=== PATIENT | male | born 1935 | race Caucasian/White ===

== ENCOUNTER 2018-12-30 09:10 | Observation (INO) | payer MEDICARE, BC ==
--- NOTE | 2018-12-27 10:20 | Diagnostic Imaging Report ---
EXAMINATION: CHEST 2 VIEWS INDICATION: Pre-operative COMPARISON: None FINDINGS: TUBES and LINES: None. LUNGS: The lung volumes are normal. No focal consolidation or pulmonary edema. PLEURA: No pleural effusion or pneumothorax. HEART AND MEDIASTINUM: The cardiomediastinal silhouette is normal in size and contour. Atherosclerotic calcifications of the thoracic aorta. BONES AND SOFT TISSUES: No acute fracture or dislocation. Degenerative changes of the visualized spine. UPPER ABDOMEN: No free air under the diaphragm. IMPRESSION: No focal pneumonia or pulmonary edema. Signed by: Zohaib Montelongo MD on 12/27/2018 10:17 AM
[2018-12-27 10:27] LABS: BASOPHILS % 0.3 % (0.0-1.0); EOSINOPHILS # (AUTO) 0.1 (0.0-0.4); EOSINOPHILS % 2.2 % (0.0-6.0); HEMATOCRIT 38.8 % (38.2-49.6); LYMPHOCYTES # (AUTO) 1.2 (1.0-3.2); MEAN CORPUSCULAR HEMOGLOBIN 29.8 pg (28-32); MEAN CORPUSCULAR HGB CONC 33.5 g/dL (31-35); MONOCYTES # (AUTO) 0.7 (0.2-0.8); MONOCYTES % 18.6 % (4.4-11.3); NEUTROPHILS # (AUTO) 1.7 (2.1-6.9); NEUTROPHILS % 45.6 % (38.7-80.0); PLATELET COUNT 223 x10e3/uL (140-360); RED BLOOD COUNT 4.36 x10e6/uL (4.3-5.7)
[2018-12-27 10:40] LABS: INR 0.98; PROTHROMBIN TIME 13.5 seconds (11.9-14.5)
[2018-12-27 10:41] LABS: PARTIAL THROMBOPLASTIN TIME 36.2 seconds (23.8-35.5)
[2018-12-27 10:49] LABS: ALANINE AMINOTRANSFERASE 13 IU/L (0-55); ALBUMIN 2.9 g/dL (3.5-5.0); ALBUMIN/GLOBULIN RATIO 0.8 (0.8-2.0); ALKALINE PHOSPHATASE 92 IU/L (40-150); ANION GAP 13.4 mmol/L (8-16); BLOOD UREA NITROGEN 17 mg/dL (7-26); BUN/CREATININE RATIO 20 (6-25); CALCIUM 9.2 mg/dL (8.4-10.2); CARBON DIOXIDE 26 mmol/L (22-29); CHLORIDE 102 mmol/L (98-107); CREATININE, SERUM 0.84 mg/dL (0.72-1.25); EST GLOMERULAR FILTRATION RATE > 60 ML/MIN (60-); GLUCOSE 122 mg/dL (74-118); POTASSIUM 4.4 mmol/L (3.5-5.1); SODIUM 137 mmol/L (136-145)
[~2018-12-30] VITALS: Ht 177.8 cm; Wt 91.2 kg
[~2018-12-30 09:10] MED LIST: ACYCLOVIR200 MG PO; ASPIR 8181 MG PO; CARVEDILOL12.5 MG PO; FLOMAX0.4 MG PO; LEVAQUIN500 MG PO; LIPITOR20 MG PO; LOSARTAN POTAS100 MG PO; PANTOPRAZOLE SO40 MG PO; PLAVIX75 MG PO
--- OUTSIDE RECORDS SUMMARY | 2018-12-30 09:14 | XMS REPORT ---
Author [facility] Address Unknown Phone Unavailable Care Team Providers [employer] Front End Developer Name Role Phone BATOOL JOSEPH Unavailable Unavailable Payers Payer Name Policy Type Policy Number Effective Date Expiration Date Problems This patient has no known problems. Allergies, Adverse Reactions, Alerts Allergy Name Allergy Type Status Severity Reaction(s) Onset Date Inactive Date Treating Clinician Comments Tetanus Vaccines and Toxoid DA Active SV 2018-11-14 00:00:00 No Known Allergies DA Active U 2018-11-02 00:00:00 Medications This patient has no known medications. Results Test Description Test Time Test Comments Text Results Atomic Results Result Comments CHEST 2 VIEWS 2018-12-27 10:15:00 [place] [address] Patient Name: LEELA AVILA MR #: [id number] : 1935 Age/Sex: 83/M Req #: [id number] Adm Physician: Ordered by: BATOOL JOSEPH MD Report #: [id number] Location: OR Room/Bed: Procedure: [id number] DX/CHEST 2 VIEWS Exam Date: Exam Time: REPORT STATUS: Signed EXAMINATION: CHEST 2 VIEWS INDICATION: Pre-operative COMPARISON: None FINDINGS: TUBES and LINES: None. LUNGS: The lung volumes are normal. No focal consolidation or pulmonary edema. PLEURA: No pleural effusion or pneumothorax. HEART AND MEDIASTINUM: The cardiomediastinal silhouette is normal in size and contour. Atherosclerotic calcifications of the thoracic aorta. BONES AND SOFT TISSUES: No acute fracture or dislocation. Degenerative changes of the visualized spine. UPPER ABDOMEN: No free air under the diaphragm. IMPRESSION: No focal pneumonia or pulmonary edema. Signed by: Estela Starks MD on 12/27/2018 10:17 AM Dictated By: ESTELA STARKS MD 101 Transcribed By: ASHISH on 12/27/181016 COPY TO: BATOOL JOSEPH MD HERNIA SAC 2018-11-15 15:39:00 RUN DATE: 11/15/18 [facility] PAGE 1 RUN TIME: 1539 Specimen Inquiry RUN USER: INTERFACE PATIENT: LEELA AVILA [facility]: [facility] U #: [id number] AGE/SX: 83/M ROOM: RE11/14/18REG DR: Sonam Medel MD : 31 BED: DIS: STATUS: [facility] TLOC: SPEC #: [id number] RECD: 11/14/18 STATUS: SERINA DUKE #: [id number] MONIKA: 11/14/18- SUBM DR: Sonam Medel MD ENTERED: 11/14/18 SP TYPE: HERNIA SAC OTHR DR: Angel Persaud ORDERED: GROSS COPIES TO: Sonam Medel MD [address] [place], [place] [address] Angel Persaud [address] [place], [place] [id number] PROCEDURES: GROSS (11/15/18) TISSUES: HERNIA - SAC CLINICAL HISTORY COLLECTION DATE: 11/14/18 RIGHT GROIN HERNIA FINAL DIAGNOSIS Right groin hernia sac, repair: HERNIA SAC NEGATIVE FOR MALIGNANCY DMW/sm D [id number] MACROSCOPIC The specimen is received in formalin, labeled with the patient's name, and identified as "hernia sac". It consists of a beck saccular fragment of tissue measuring 5.0 X 1.1 X 0.4 cm. Samples of the specimen are submitted for microscopic evaluation in a single cassette. GROSS PERFORMED AT [facility] CONTINUED ON NEXT PAGE RUN DATE: 11/15/18 [facility] PAGE 2 RUN TIME: 1539 Specimen Inquiry RUN USER: INTERFACE SPEC #: [id number] PATIENT: LEELA AVILA #[id number] (Continued) MACROSCOPIC (Continued) [address] [facility] [place] [address] (P)[phone] MICROSCOPIC All of the stains, including any controls performed, stain appropriately. MICROSCOPIC PERFORMED AT [facility] [address] [place] [address] (P)[phone] PERFORMING SITE Diagnosis performed at: [facility] [address] [place] [address] Signed SIGNATURE ON FILE Lauren Keene MD 11/15/18 1539 END OF REPORT COMPREHENSIVE METABOLIC PANEL 2018-11-02 11:50:00 SODIUM (test code=NA) 133 mmol/L 136-145 POTASSIUM (test code=K) 3.6 mmol/L 3.5-5.1 CHLORIDE (test code=CL) 98.0 mmol/L 98-107 CARBON DIOXIDE (test code=CO2) 30.0 mmol/L 21-32 ANION GAP (test code=GAP) 8.6 10-20 GLUCOSE (test code=GLU) 80 mg/dL 74-106 BLOOD UREA NITROGEN (test code=BUN) 13 mg/dL 7-18 GLOMERULAR FILTRATION RATE (test code=GFR) > 60 mL/min >=60 Estimated GFR by using Modified MDRD formula.Chronic kidney disease is defined as either kidney damageor GFR <60 mL/min/1.73 m2 for >3 months. CREATININE (test code=CREAT) 0.90 mg/dL 0.7-1.3 BUN/CREATININE RATIO (test code=BUN/CREA) 14.4 10-20 TOTAL PROTEIN (test code=PROT) 7.1 gram/dL 6.4-8.2 ALBUMIN (test code=ALB) 3.6 g/dL 3.4-5.0 GLOBULIN (test code=GLOB) 3.5 gram/dL 2.7-4.2 ALBUMIN/GLOBULIN RATIO (test code=A/G) 1.0 0.75-1.50 CALCIUM (test code=CA) 9.0 mg/dL 8.5-10.1 BILIRUBIN TOTAL (test code=BILT) 0.70 mg/dL 0.0-1.0 SGOT/AST (test code=AST) 23 IUnit/L 15-37 SGPT/ALT (test code=ALT) 19 IUnit/L 12-78 ALKALINE PHOSPHATASE TOTAL (test code=ALKP) 106 IUnit/L 45-117 Note change in reference range due to change in reagent. PROTHROMBIN [id number] 11:45:00* Test Item Value Reference Range Comments PROTHROMBIN TIME PATIENT (test code=PTP) 11.3 seconds 9.0-14.0 INTERNATIONAL NORMAL RATIO (test code=INR) 1.0 0.8-1.2 The therapeutic range for oral anticoagulant therapy formost indications is an international normalized ratio (INR)of between 2.0 and 3.0. The recommended therapeutic INRrange for various clinical situations is listed below: Clinical Situation INR range Pulmonary e mbolism treatment (2.0-3.0)Venous thrombosis treatmentVenous thrombosis prophylaxis (high risk surgery)Prevention of systemic embolism from: Acute myocardial infarction Valvular heart disease Atrial fibrillation Mechanical prosthetic heart valves (2.5-3.5) THROMBOPLASTIN TIME [id number] 11:45:00* Test Item Value Reference Range Comments THROMBOPLASTIN TIME PARTIAL (test code=PTT) 35.3 seconds 25.0-36.5 COMPREHENSIVE METABOLIC [id number] 11:42:00* Test Item Value Reference Range Comments SODIUM (test code=NA) 133 mmol/L 136-145 POTASSIUM (test code=K) 3.6 mmol/L 3.5-5.1 CHLORIDE (test code=CL) 98.0 mmol/L 98-107 CARBON DIOXIDE (test code=CO2) mmol/L 21-32 ANION GAP (test code=GAP) 10-20 GLUCOSE (test code=GLU) mg/dL 74-106 BLOOD UREA NITROGEN (test code=BUN) mg/dL 7-18 GLOMERULAR FILTRATION RATE (test code=GFR) mL/min >=60 CREATININE (test code=CREAT) mg/dL 0.7-1.3 BUN/CREATININE RATIO (test code=BUN/CREA) 10-20 TOTAL PROTEIN (test code=PROT) gram/dL 6.4-8.2 ALBUMIN (test code=ALB) g/dL 3.4-5.0 GLOBULIN (test code=GLOB) gram/dL 2.7-4.2 ALBUMIN/GLOBULIN RATIO (test code=A/G) 0.75-1.50 CALCIUM (test code=CA) mg/dL 8.5-10.1 BILIRUBIN TOTAL (test code=BILT) mg/dL 0.0-1.0 SGOT/AST (test code=AST) IUnit/L 15-37 SGPT/ALT (test code=ALT) IUnit/L 12-78 ALKALINE PHOSPHATASE TOTAL (test code=ALKP) IUnit/L 45-117 CBC W/AUTO [id number] 11:41:00* Test Item Value Reference Range Comments WHITE BLOOD CELL (test code=WBC) 3.6 K/mm3 4.5-12.5 RED BLOOD CELL (test code=RBC) 5.01 mill/mm3 4.0-5.8 HEMOGLOBIN (test code=HGB) 15.0 gram/dL 13.0-17.5 HEMATOCRIT (test code=HCT) 45.2 % 42.0-52.0 MEAN CELL VOLUME (test code=MCV) 90.2 fL 80-98 MEAN CELL HGB (test code=MCH) 29.9 picogram 27.0-33.0 MEAN CELL HGB CONCETRATION (test code=MCHC) 33.2 gram/dL 33.0-36.0 RED CELL DISTRIBUTION WIDTH (test code=RDW) 14.0 % 11.6-16.2 RED CELL DISTRIBUTION WIDTH SD (test code=RDW-SD) 46.1 fL 37.0-51.0 PLATELET COUNT (test code=PLT) 160 K/mm3 150-450 MEAN PLATELET VOLUME (test code=MPV) 8.4 fL 6.7-11.0 NEUTROPHIL % (test code=NT%) 33.3 % 39.0-69.0 IMMATURE GRANULOCYTE % (test code=IG%) 0.3 % 0.0-5.0 LYMPHOCYTE % (test code=LY%) 46.8 % 25.0-55.0 MONOCYTE % (test code=MO%) 16.9 % 0.0-10.0 EOSINOPHIL % (test code=EO%) 1.9 % 0.0-5.0 BASOPHIL % (test code=BA%) 0.8 % 0.0-1.0 NUCLEATED RBC % (test code=NRBC%) 0.0 % 0-0 NEUTROPHIL # (test code=NT#) 1.20 K/mm3 1.8-7.7 IMMATURE GRANULOCYTE # (test code=IG#) 0.01 x10 3/uL 0-0.03 LYMPHOCYTE # (test code=LY#) 1.69 K/mm3 1.0-5.0 MONOCYTE # (test code=MO#) 0.61 K/mm3 0-0.8 EOSINOPHIL # (test code=EO#) 0.07 K/mm3 0.0-0.5 BASOPHIL # (test code=BA#) 0.03 K/mm3 0.0-0.2 NUCLEATED RBC # (test code=NRBC#) 0.00 K/mm3 0.0-0.1 - XR CHEST 2 [id number] 10:31:00 FAX: Sonam Marin [phone] [place]: O St: PRE FAX: Angel Rosenthal [phone] Name: LEELA AVILA [facility] : 1935 Age/S: 83/M [address] [facility] Unit #: [id number] Loc: [place] [address] Phys: Sonam Medel MD Acct: [id number] Dis Date: Status: PRE [facility] [place] PHONE #: [phone] Exam Date: 11/02/2018 1025 FAX #: [phone] Reason: PRE OP EXAMS: CPT CODE: [id number] XR CHEST 2 V [id number] HISTORY: Preop. COMPARISON: None available. AP and lateral view of the chest: No acute infiltrates, effusion or congestion. Cardiac and the mediastinal silhouette are normal. DJD of the dorsal spine. IMPRESSION: No acute infiltrates, effusion or congestion. at 1031 Reported and signed by: Emanuel Sarabia M.D. CC: Sonam Medel MD; Angel Persaud Technologist: Shahbaz MINOR(R) Trnscrd Date/Time/By: 11/02/2018 (1031) : By: [email or web address] Orig Print D/T: S: 11/02/2018 (1030) PAGE 1 Signed Report
--- OUTSIDE RECORDS SUMMARY | 2018-12-30 09:14 | XMS REPORT | Clinical Summary ---
Author Author [facility] Organization [facility] Address Unknown Phone Unavailable Care Team Providers Care Seed Cone Picker Name Role Phone Angel Persaud PCP Allergies No Known Allergies Medications End Date Status Medication Sig Dispensed Refills Start Date Active aspirin (ECOTRIN) 81 MG Take 81 mg by 0 enteric coated tablet mouth daily. Active losartan (COZAAR) 100 MG Take 100 mg 0 tablet by mouth daily. Active atorvastatin (LIPITOR) 40 Take 40 mg by 0 MG tablet mouth daily. Active pantoprazole (PROTONIX) Take 40 mg by 0 40 MG EC tablet mouth daily. Active clopidogrel (PLAVIX) 75 Take 75 mg by 0 mg tablet mouth daily. Active acyclovir (ZOVIRAX) 200 Take by mouth 0 MG capsule every 4 (four) hours while awake. 11/23/2018 Discontinued potassium chloride Take 10 mEq 0 (K-DUR,KLOR-CON) 10 MEQ by mouth 2 CR tablet (two) times a day. 11/23/2018 Discontinued hydroCHLOROthiazide Take 25 mg by 0 (HYDRODIURIL) 25 MG mouth daily. tablet 12/23/2018 bisacodyl (DULCOLAX) 5 mg Take 2 30 tablet 0 EC tablet tablets (10 9 mg total) by mouth daily as needed for constipation for up to 30 days. 12/23/2018 tamsulosin (FLOMAX) 0.4 Take 1 30 capsule 0 mg capsule capsule (0.4 9 mg total) by mouth daily with dinner for 30 days. Active Problems Problem Noted Date Obstructive uropathy 11/23/2018 Postoperative urinary retention 11/23/2018 Acute renal failure 11/21/2018 Myocardial infarct Hypertension Elevated cholesterol GERD (gastroesophageal reflux disease) Encounters Care Team Description Date Type Specialty Parmjit Mccoy MD Postoperative urinary retention (Primary Dx) 12/06/2018 Office Visit Urology Shelton Ayoub, Cuco Burnette MD Bokhari, Syed Muhammad Javed, MD Acute renal failure, unspecified acute renal failure type (HCC) (Primary Dx); Prostatic hypertrophy; Bladder distension; Hydronephrosis, unspecified hydronephrosis type; Hemorrhoids, unspecified hemorrhoid type; Accelerated hypertension; Bladder infection; Hypertension, unspecified type; Obstructive uropathy 11/21/2018 [facility] General Internal Medicine - Encounter 11/23/2018 after 12/29/2017 Social History Date Tobacco Use Types Packs/Day Years Used Quit: 1970 Former Smoker Smokeless Tobacco: Never Used Alcohol Use Drinks/Week oz/Week Comments Not Currently Sex Assigned at Date Recorded Not on file Industry Job Start Date Occupation Not on file Not on file Not on file Travel End Travel History Travel Start No recent travel history available. Last Filed Vital Signs Time Taken Vital Sign Reading 12/06/2018 2:38 PM CDT Blood Pressure 192/80 12/06/2018 2:38 PM CDT Pulse 77 12/06/2018 2:38 PM CDT Temperature 36.7 C (98.1 F) 11/23/2018 4:32 PM CDT Respiratory Rate 20 11/23/2018 4:32 PM CDT Oxygen Saturation 95% - Inhaled Oxygen - Concentration 12/06/2018 2:38 PM CDT Weight 91.2 kg (201 lb) 11/21/2018 4:20 PM CDT Height 177.8 cm (5' 10") 11/21/2018 4:20 PM CDT Body Mass Index 28.84 Plan of Treatment Health Maintenance Due Date Last Done Comments SHINGLES VACCINES (#1) 1983 65+ PNEUMOCOCCAL VACCINE 1998 (1 of 2 - PCV13) INFLUENZA VACCINE 01/05/2019 Procedures Comments Procedure Name Priority Date/Time Associated Diagnosis ESTIMATED GFR Timed 11/23/2018 4:46 AM CDT PHOSPHORUS LEVEL Timed 11/23/2018 4:46 AM CDT MAGNESIUM LEVEL Timed 11/23/2018 4:46 AM CDT HC COMPLETE BLD COUNT Timed 11/23/2018 W/AUTO DIFF 4:46 AM CDT BASIC METABOLIC PANEL Timed 11/23/2018 4:46 AM CDT US RENAL Routine 11/22/2018 9:16 PM CDT MANUAL DIFFERENTIAL Routine 11/22/2018 3:20 PM CDT ESTIMATED GFR Routine 11/22/2018 3:20 PM CDT CBC WITH PLATELET AND Routine 11/22/2018 DIFFERENTIAL 3:20 PM CDT BASIC METABOLIC PANEL Routine 11/22/2018 3:[address] RENAL STONE PROTOCOL STAT 11/21/2018 7:57 PM CDT URINE CULTURE Routine 11/21/2018 5:03 PM CDT GRAM STAIN Routine 11/21/2018 5:03 PM CDT ESTIMATED GFR STAT 11/21/2018 5:00 PM CDT BASIC METABOLIC PANEL STAT 11/21/2018 5:00 PM CDT HC COMPLETE BLD COUNT STAT 11/21/2018 W/AUTO DIFF 5:00 PM CDT URINALYSIS SCREEN AND Routine 11/21/2018 MICROSCOPY, WITH REFLEX 4:49 PM CDT TO CULTURE AL CRITICAL CARE, E/M Routine 11/21/2018 30-74 MINUTES 4:29 PM CDT after 12/29/2017 Results * Estimated GFR (11/23/2018 4:46 AM CDT) Only the most recent of 3 results within the time period is included. Estimated GFR 68 mL/min/1.73 m2 [facility] Comment: [facility] G1 >=90 Normal or high G2 60-89Mildly decreased [id number] Mildly to moderately decreased T1x89-78 Moderately to severely decreased G4 15-29Severely decreased G5 <15Kidney failure The eGFR was calculated using the Chronic Kidney Disease Epidemiology Collaboration (CKD-EPI) equation. Interpretation is based on recommendations of the National Kidney Foundation-Kidney Disease Outcomes Quality Initiative (NKF-KDOQI) published in 2014. Specimen Plasma specimen Performing Organization Address City/State/Zipcode Phone Number [facility] DEPARTMENT OF [address] [place] [address] PATHOLOGY AND GENOMIC MEDICINE [facility] [address] * CBC with platelet and differential (11/23/2018 4:46 AM CDT) Only the most recent of 3 results within the time period is included. WBC 6.2 4.2 - 11.0 k/uL [facility] RBC 4.29 4.04 - 5.86 m/uL [facility] HGB 12.8 (L) 13.0 - 17.3 g/dL [facility] HCT 38.5 34.0 - 45.0 % [facility] MCV 89.7 80.0 - 98.0 fL [facility] MCH 29.8 27.0 - 34.0 pg [facility] MCHC 33.2 31.5 - 36.5 g/dL [facility] RDW - SD 47.7 37.0 - 51.0 fL [facility] MPV 9.0 7.4 - 10.4 fL [facility] Platelet count 192 150 - 400 k/uL [facility] Nucleated RBC 0.00 /100 WBC [facility] Neutrophils 54.5 36.0 - 66.0 % [facility] Lymphocytes 21.8 (L) 24.0 - 44.0 % [facility] Monocytes 17.3 (H) 0.0 - 6.0 % [facility] Eosinophils 5.0 0.0 - 6.0 % [facility] Basophils 0.6 0.0 - 1.2 % [facility] Immature 0.8 0.0 - 1.0 % [facility] Specimen Blood Performing Organization Address City/[facility]/Zipcode Phone Number [facility] DEPARTMENT OF [address] [place] [address] PATHOLOGY AND GENOMIC MEDICINE [address] * Phosphorus level (11/23/2018 4:46 AM CDT) Phosphorus 2.6 2.4 - 4.5 mg/dL [facility] Specimen Plasma specimen Performing Organization Address City/[facility] Phone [facility] DEPARTMENT [address] [place] [address] PATHOLOGY AND GENOMIC MEDICINE [address] * Magnesium level (11/23/2018 4:46 AM CDT) Magnesium 1.80 1.60 - 2.40 mg/dL [facility] Specimen Plasma specimen Performing Organization Address City/[facility] Phone Number [facility] [place] [address] PATHOLOGY AND GENOMIC MEDICINE [address] * Basic metabolic panel (11/23/2018 4:46 AM CDT) Only the most recent of 3 results within the time period is included. Sodium 139 135 - 150 mEq/L [facility] Potassium 4.3 3.5 - 5.0 mEq/L [facility] Chloride 102 98 - 112 mEq/L [facility] CO2 25 24 - 31 mmol/L [facility] Anion gap 12@ANIO 7 - 15 mEq/L [facility] BUN 24 (H) 7 - 18 mg/dL [facility] Creatinine 1.00 0.70 - 1.20 mg/dL [facility] Glucose 110 (H) 65 - 100 mg/dL [facility] Calcium 8.6 (L) 8.8 - 10.2 mg/dL [facility] Specimen Plasma specimen Performing Organization Address City/[facility]/Zipcode Phone Number [facility] DEPARTMENT OF [address] [place] [address] PATHOLOGY AND GENOMIC MEDICINE [facility] [address] [facility] [place], [place] [id number] [place] [address] * US Renal (11/22/2018 9:16 PM CDT) Specimen Narrative Performed At EXAMINATION:US RENAL [facility] CLINICAL HISTORY:eval jose r COMPARISON:CT performed on 11/21/2018. FINDINGS: Right kidney: The right kidney is normal in size and echogenicity. There is no evidence of mass, calculi, or hydronephrosis. The right kidney measures 10.5 x 6.0 x 5.6 cm. Left kidney: Left kidney is normal in size and echogenicity. There is no evidence of mass, calculi, or hydronephrosis. The left kidney measures 10.8 x 6.1 x 5.4 cm. The urinary bladder is decompressed with a Romo catheter. IMPRESSION: Normal appearance of the kidneys. [facility]-[id number] Procedure Note [facility], Radiology Results Incoming - 11/22/2018 9:37 PM CDT EXAMINATION: US RENAL CLINICAL HISTORY: eval jose r COMPARISON: CT performed on 11/21/2018. FINDINGS: Right kidney: The right kidney is normal in size and echogenicity. There is no evidence of mass, calculi, or hydronephrosis. The right kidney measures 10.5 x 6.0 x 5.6 cm. Left kidney: Left kidney is normal in size and echogenicity. There is no evidence of mass, calculi, or hydronephrosis. The left kidney measures 10.8 x 6.1 x 5.4 cm. The urinary bladder is decompressed with a Romo catheter. IMPRESSION: Normal appearance of the kidneys. [facility]-[id number] Performing Organization Address City/[facility]/Zipcode Phone Number [facility] [address] [place] [address] * Manual differential (11/22/2018 3:20 PM CDT) Manual PERFORMED [facility] differential [facility] Neutrophils 60.0 36.0 - 66.0 % [facility] Lymphocytes 17.0 (L) 24.0 - 44.0 % [facility] Monocytes 12.0 (H) 0.0 - 6.0 % [facility] Eosinophils 3.0 0.0 - 6.0 % [facility] Basophils 0.0 0.0 - 1.2 % [facility] Metamyelocytes 0 0 - 1 % [facility] Promyelocytes 0 0 - 1 % [facility] Reactive 8.0 [facility] lymphocytes [facility] Platelet slide Bret adequate [facility] review [facility] Schistocytes Occasional [facility] Prashant cells 1+ [facility] Specimen Performing Organization Address City/State/Zipcode Phone Number [facility] DEPARTMENT OF [address] [place] [address] PATHOLOGY AND GENOMIC MEDICINE [facility] [address] [place] [address] HOSPITAL * CT Renal Stone Protocol (11/21/2018 7:57 PM CDT) Specimen Narrative Performed At EXAMINATION: [facility] CT RENAL STONE PROTOCOL CLINICAL HISTORY: Abd painunspecified TECHNIQUE: An emergency study was performed at [address] images were acquired using low-dose technique with iterative reconstructions and/or automatic exposure control to reduce radiation dose. Multiple axial images of the abdomen and pelvis were obtained without intravenous contrast. Oral contrast was not given. Sagittal and coronal computerized reformatted images were also obtained. COMPARISON: None. ABDOMEN: The bones are diffusely demineralized. Vacuum discs, disc space narrowing, endplate sclerosis and osteophytosis and sclerosis are multiple levels in the spine. Hip joint spaces are preserved. SI joints are within normal limits.Visualized portions of the chest demonstrate minimal linear and dependent atelectatic changes. A small hiatal hernia seen. Heart is normal in size. Coronary arteries are calcified.Solid organ evaluation is compromised without intravenous contrast. Allowing for this, liver, spleen, pancreas, gallbladder and biliary ducts are normal.The adrenal glands are normal. Both kidneys are hydronephrotic. Mild perinephric stranding is seen bilaterally. Ureters are dilated. Atherosclerotic calcification is in the aorta and its branches.Inferior vena cava is normal. There is no retroperitoneal adenopathy.Gastric contours are normal.Small bowel is not dilated.The appendix is not discretely identified. Multiple diverticula are in the colon. PELVIS: The bladder is distended, extending to the umbilicus. Ureters are dilated to the bladder.Prostate is enlarged, 55-65 mm, minimally deforming the floor the bladder.There are no masses or fluid collections. IMPRESSION: Markedly distended bladder, probably causing the bilateral hydronephrosis and hydroureter. Enlarged prostate. Diverticulosis without diverticulitis. Small hiatal hernia. Nonvisualization of the appendix. [id number] Procedure Note Hm Interface, Radiology Results Incoming - 11/21/2018 8:36 PM CDT EXAMINATION: CT RENAL STONE PROTOCOL CLINICAL HISTORY: Abd pain unspecified TECHNIQUE: An emergency study was performed at [address] images were acquired using low-dose technique with iterative reconstructions and/or automatic exposure control to reduce radiation dose. Multiple axial images of the abdomen and pelvis were obtained without intravenous contrast. Oral contrast was not given. Sagittal and coronal computerized reformatted images were also obtained. COMPARISON: None. ABDOMEN: The bones are diffusely demineralized. Vacuum discs, disc space narrowing, endplate sclerosis and osteophytosis and sclerosis are multiple levels in the spine. Hip joint spaces are preserved. SI joints are within normal limits. Visualized portions of the chest demonstrate minimal linear and dependent atelectatic changes. A small hiatal hernia seen. Heart is normal in size. Coronary arteries are calcified. Solid organ evaluation is compromised without intravenous contrast. Allowing for this, liver, spleen, pancreas, gallbladder and biliary ducts are normal. The adrenal glands are normal. Both kidneys are hydronephrotic. Mild perinephric stranding is seen bilaterally. Ureters are dilated. Atherosclerotic calcification is in the aorta and its branches. Inferior vena cava is normal. There is no retroperitoneal adenopathy. Gastric contours are normal. Small bowel is not dilated. The appendix is not discretely identified. Multiple diverticula are in the colon. PELVIS: The bladder is distended, extending to the umbilicus. Ureters are dilated to the bladder. Prostate is enlarged, 55-65 mm, minimally deforming the floor the bladder. There are no masses or fluid collections. IMPRESSION: Markedly distended bladder, probably causing the bilateral hydronephrosis and hydroureter. Enlarged prostate. Diverticulosis without diverticulitis. Small hiatal hernia. Nonvisualization of the appendix. [id number] Performing Organization Address City/[facility]/Zipcode Phone Number [facility] [address] [place] [address] * Gram stain (11/21/2018 5:03 PM CDT) Gram stain Rare WBC's [facility] result No organisms seen [facility] Comment: HOSPITAL Specimen Information Specimen Source: Urine Specimen Site: Clean catch Specimen Urine Performing Organization Address City/[facility]/Zipcode Phone Number [facility] [place] [address] PATHOLOGY AND GENOMIC MEDICINE [address] * Urine culture (11/21/2018 5:03 PM CDT) Urine culture No growth after 24 hours [facility] isolate Comment: [facility] Specimen Information HOSPITAL Specimen Source: Urine Specimen Site: Clean catch Specimen Urine Performing Organization Address [facility] Phone Number [facility] [place] [address] PATHOLOGY AND GENOMIC MEDICINE [address] * Urinalysis screen and microscopy, with reflex to culture (11/21/2018 4:49 PM CDT) Specimen site Clean catch [facility] Color, UA Yellow [facility] Appearance, UA Slightly-Cloudy [facility] Specific 1.011 1.001 - 1.035 [facility] gravity, UA [facility] pH, UA 5.0 5.0 - 8.5 [facility] Protein, UA Negative Negative [facility] Glucose, UA Negative Negative [facility] Ketones, UA Negative Negative [facility] Bilirubin, UA Negative Negative [facility] Blood, UA Large (A) Negative [facility] Nitrite, UA Negative Negative [facility] Urobilinogen, Negative <2.0 [facility] Leukocyte Small (A) Negative [facility] esterase, UA [facility] Epithelial Few /HPF [facility] cells, UA [facility] WBC, UA 19 (H) 0 - 1 /HPF [facility] RBC, UA 50 (H) 0 - 5 /HPF [facility] Bacteria, UA None seen None seen [facility] Yeast, UA None seen [facility] Yeast with None seen [facility] pseudohyphae, [facility]THOD[facility]Y UA [facility] Specimen Urine Performing Organization Address City/State/Zipcode Phone Number [facility] DEPARTMENT OF [address] [place] [address] PATHOLOGY AND GENOMIC MEDICINE [facility] [address] [place] [address] HOSPITAL * CRITICAL CARE (11/21/2018 4:29 PM CDT) Narrative Performed At Shelton Ayoub DO 11/25/2018 12:04 PM Critical Care Performed by: Shelton Ayoub DO Authorized by: Shelton Ayoub DO Critical care provider statement: Critical care time (minutes):60 Critical care time was exclusive of:Teaching time and separately billable procedures and treating other patients Critical care was necessary to treat or prevent imminent or life-threatening deterioration of the following conditions:Renal failure Critical care was time spent personally by me on the following activities:Development of treatment plan with patient or surrogate, blood draw for specimens, discussions with consultants, discussions with primary provider, evaluation of patient's response to treatment, examination of patient, interpretation of cardiac output measurements, obtaining history from patient or surrogate, vascular access procedures, review of old charts, pulse oximetry, ordering and review of radiographic studies, ordering and review of laboratory studies, ordering and performing treatments and interventions and re-evaluation of patient's condition Joseph 'yes' if you are taking over critical care for this patient from another provider.: no after 12/29/2017 Insurance Type Payer Benefit Subscriber ID Effective Phone Address Plan / Dates Group Medicare MEDICARE MEDICARE xxxxxxxxxxx 1988-P [place], PART A AND resent [place] B PPO BCBS BCBS OUT xxxxxxxxxxxx 2018- OF STATE Present (Home) [place] [address] Advance Directives Patient has advance care planning documents on file. For more information, jaiden anaya contact: Dieter Mir [address] [place] [address]
[2018-12-30] MEDS ORDERED: CEFOXITIN 1GM/ D5W 50ML 50 ML IV ONE (09:33)
[2018-12-30] MEDS ORDERED: hydralazine PO (09:58)
[2018-12-30] MEDS ORDERED: METRONIDAZOLE500 MG PO (09:58)
[2018-12-30] MEDS: SODIUM CHLORIDE 0.9% 1000ML 1,000 ML IV SCH ×2 (10:56→20:25)
[2018-12-30] MEDS ORDERED: MORPHINE SULFATE INJ 4 MG/ML INJ 1ML IV PRN (11:00)
[2018-12-30] MEDS ORDERED: HYDROCODONE/APAP 7.5MG-325MG 1 EA TAB PO PRN (11:00)
--- OUTSIDE RECORDS SUMMARY | 2018-12-30 11:43 | XMS REPORT | Clinical Summary ---
Author Author Garcias Mormon Organization Garcias Mormon Address Unknown Phone Unavailable Care Team Providers Care Appliance Mechanic Name Role Phone Angel Persaud PCP Allergies [...] 12/06/2018 Office Visit Urology Shelton Ayoub, Cuco Burntete MD Bokhari, Syed Muhammad Javed, MD Acute renal failure, unspecified acute renal failure type (HCC) (Primary Dx); Prostatic hypertrophy; Bladder distension; Hydronephrosis, unspecified hydronephrosis type; Hemorrhoids, unspecified hemorrhoid type; Accelerated hypertension; Bladder infection; Hypertension, unspecified type; Obstructive uropathy 11/21/2018 [facility] General Internal Medicine - Encounter 11/23/2018 after [...] WITH REFLEX 4:49 PM CDT TO CULTURE ME CRITICAL CARE, E/M Routine 11/21/2018 30-74 MINUTES 4:29 PM CDT after 12/29/2017 Results * Estimated GFR (11/23/2018 4:46 AM CDT) Only the most recent of 3 results within the time period is included. Estimated GFR 68 mL/min/1.73 m2 ALICE Comment: BUDDHIST [facility] Hospital[facility] G1 >=90 Normal or high G2 60-89Mildly decreased A4c41-91 Mildly to moderately decreased L3k34-01 Moderately to severely decreased G4 15-29Severely decreased G5 <15Kidney failure The eGFR was calculated using the Chronic Kidney Disease Epidemiology Collaboration (CKD-EPI) equation. Interpretation is based on recommendations of the National Kidney Foundation-Kidney Disease Outcomes Quality Initiative (NKF-KDOQI) published in 2014. Specimen Plasma specimen Performing Organization Address City/State/Zipcode Phone Number [facility] DEPARTMENT OF [address] [place] [address] PATHOLOGY AND GENOMIC MEDICINE [facility] [address] * CBC with platelet and differential (11/23/2018 4:46 AM CDT) Only the most recent of 3 results within the time period is included. WBC 6.2 4.2 - 11.0 k/uL [facility] RBC 4.29 4.04 - 5.86 m/uL [facility] HGB 12.8 (L) 13.0 - 17.3 g/dL [facility] HCT 38.5 34.0 - 45.0 % [facility] MCV 89.7 80.0 - 98.0 fL [facility] MCH 29.8 27.0 - 34.0 pg [facility] MCHC 33.2 31.5 - 36.5 g/dL [facility] RDW - SD 47.7 37.0 - 51.0 fL [facility] MPV 9.0 7.4 - 10.4 fL [facility] Platelet count 192 150 - 400 k/uL [facility] Nucleated RBC 0.00 /100 WBC [facility] Neutrophils 54.5 36.0 - 66.0 % [facility] Lymphocytes 21.8 (L) 24.0 - 44.0 % [facility] Monocytes 17.3 (H) 0.0 - 6.0 % [facility] Eosinophils 5.0 0.0 - 6.0 % [facility] Basophils 0.6 0.0 - 1.2 % [facility] Immature 0.8 0.0 - 1.0 % [facility] Specimen Blood Performing Organization Address City/[facility]/Zipcode Phone Number [facility] DEPARTMENT OF [address] [place] [address] PATHOLOGY AND GENOMIC MEDICINE [address] * Phosphorus level (11/23/2018 4:46 AM CDT) Phosphorus 2.6 2.4 - 4.5 mg/dL [facility] Specimen Plasma specimen Performing Organization Address City/[facility] Phone Number [facility] DEPARTMENT [address] [place] [address] PATHOLOGY AND GENOMIC MEDICINE [address] * Magnesium level (11/23/2018 4:46 AM CDT) Magnesium 1.80 1.60 - 2.40 mg/dL [facility] Specimen Plasma specimen Performing Organization Address City/[facility] Cent[facility] Phone Number [facility] [place] [address] PATHOLOGY AND GENOMIC MEDICINE [address] * Basic metabolic panel (11/23/2018 4:46 AM CDT) Only the most recent of 3 results within the time period is included. Sodium 139 135 - 150 mEq/L [facility] Potassium 4.3 3.5 - 5.0 mEq/L [facility] Chloride 102 98 - 112 mEq/L [facility] CO2 25 24 - 31 mmol/L [facility] Anion gap 12@ANIO 7 - 15 mEq/L [facility] BUN 24 (H) 7 - 18 mg/dL [facility] Creatinine 1.00 0.70 - 1.20 mg/dL [facility] Glucose 110 (H) 65 - 100 mg/dL [facility] Calcium 8.6 (L) 8.8 - 10.2 mg/dL [facility] Specimen Plasma specimen Performing Organization Address City/[facility]/Zipcode Phone Number [facility] DEPARTMENT OF [address] [place] [address] PATHOLOGY AND GENOMIC MEDICINE [facility] [address] [facility] [place], [place] [id number] [place] [address] * US Renal (11/22/2018 9:16 PM CDT) Specimen Narrative Performed At EXAMINATION:US RENAL [facility] CLINICAL HISTORY:eval jose r COMPARISON:CT performed on [...] catheter. IMPRESSION: Normal appearance of the kidneys. [facility]-[id number] Procedure Note [facility], Radiology Results Incoming - 11/22/2018 9:37 [...] catheter. IMPRESSION: Normal appearance of the kidneys. [facility]-[id number] Performing Organization Address City/[facility]/Zipcode Phone Number [facility] [address] [place] [address] * Manual differential (11/22/2018 3:20 PM CDT) Manual PERFORMED ALICE differential [facility] Neutrophils 60.0 36.0 - 66.0 % [facility] Lymphocytes 17.0 (L) 24.0 - 44.0 % [facility] Monocytes 12.0 (H) 0.0 - 6.0 % [facility] Eosinophils 3.0 0.0 - 6.0 % [facility] Basophils 0.0 0.0 - 1.2 % [facility] Metamyelocytes 0 0 - 1 % [facility] Promyelocytes 0 0 - 1 % [facility] Reactive 8.0 ALICE lymphocytes [facility] Platelet slide Bret adequate ALICE review [facility] Schistocytes Occasional [facility] Prashant cells 1+ [facility] Specimen Performing Organization Address City/State/Zipcode Phone Number [facility] DEPARTMENT OF [address] [place] [address] PATHOLOGY AND GENOMIC MEDICINE [facility] [address] [place] [address] HOS[address] * CT Renal Stone Protocol (11/21/2018 7:57 PM CDT) Specimen Narrative Performed At EXAMINATION: [facility] CT RENAL STONE PROTOCOL CLINICAL HISTORY: Abd [...] Small hiatal hernia. Nonvisualization of the appendix. [id number] Procedure Note Hm Interface, Radiology Results Incoming [...] Small hiatal hernia. Nonvisualization of the appendix. [id number] Performing Organization Address City/[facility]/Zipcode Phone Number [facility] [address] [place] [address] * Gram stain (11/21/2018 5:03 PM CDT) Gram stain Rare WBC's ALICE result No organisms seen BUDDHIST Comment: HOSPITAL Specimen Information Specimen Source: Urine Specimen Site: Clean catch Specimen Urine Performing Organization Address City/[facility]/Zipcode Phone Number [facility] [place] [address] PATHOLOGY AND GENOMIC MEDICINE [address] * Urine culture (11/21/2018 5:03 PM CDT) Urine culture No growth after 24 hours ALICE isolate Comment: BUDDHIST Specimen Information HOSPITAL Specimen Source: Urine Specimen Site: Clean catch Specimen Urine Performing Organization Address [facility] Cent[facility]ode Phone Number [facility] [place] [place] [address] PATHOLOGY AND GENOMIC MEDICINE [address] * Urinalysis screen and microscopy, with reflex to culture (11/21/2018 4:49 PM CDT) Specimen site Clean catch [facility] Color, UA Yellow [facility] Appearance, UA Slightly-Cloudy [facility] Specific 1.011 1.001 - 1.035 ALICE gravity, UA [facility] pH, UA 5.0 5.0 - 8.5 [facility] Protein, UA Negative Negative [facility] Glucose, UA Negative Negative [facility] Ketones, UA Negative Negative [facility] Bilirubin, UA Negative Negative [facility] Blood, UA Large (A) Negative [facility] Nitrite, UA Negative Negative [facility] Urobilinogen, Negative <2.0 [facility] Leukocyte Small (A) Negative ALICE esterase, UA [facility] Epithelial Few /HPF ALICE cells, UA [facility] WBC, UA 19 (H) 0 - 1 /HPF [facility] RBC, UA 50 (H) 0 - 5 /HPF [facility] Bacteria, UA None seen None seen [facility] Yeast, UA None seen [facility] Yeast with None seen ALICE pseudohyphae, BUDDHIST UA [facility] Specimen Urine Performing Organization Address City/State/Zipcode Phone Number [facility] DEPARTMENT OF [address] [place] [address] PATHOLOGY AND GENOMIC MEDICINE [facility] [address] [place] [address] HOSPITAL * CRITICAL CARE (11/21/2018 4:29 PM [...] OUT xxxxxxxxxxxx 2018- OF STATE Present (Home) [place] [address] Advance Directives Patient has advance care planning documents on file. For more information, jaiden anaya contact: Dieter Mir [address] [place] [address]
--- NOTE | 2018-12-30 11:45 | NUR ---
report received, patient to arrive to unit via stretcher, alert and oriented.
--- NOTE | 2018-12-30 11:54 | NUR ---
patient arrived to unit alert and oriented, call link within reach and bed in lowest position.
[2018-12-30 12:06] VITALS: BP 164/75
[2018-12-30 12:12] VITALS: BP 164/75
[2018-12-30 12:13] VITALS: BP 165/75
[2018-12-30] MEDS ORDERED: PNEUMOCOCCAL VACCINE POLYVALENT 23 MCG/0.5 ML VIAL IM SCH (12:15)
[2018-12-30] MEDS ORDERED: CEFOXITIN 1GM/ D5W 50ML 50 ML IV SCH (14:00)
[2018-12-30 15:51] VITALS: BP 175/83
[2018-12-30] MEDS: METRONIDAZOLE 500 MG TAB PO SCH ×2 (16:00→20:25)
[2018-12-30] MEDS: DOCUSATE SODIUM 100 MG CAP PO SCH (16:00)
[2018-12-30] MEDS: ASPIRIN 81 MG CHEW TAB PO SCH (16:00)
[2018-12-30] MEDS: CARVEDILOL 12.5 MG TAB PO SCH (16:00)
[2018-12-30] MEDS: CEFOXITIN 1GM/ D5W 50ML 50 ML IV SCH ×2 (16:00→22:00)
--- NOTE | 2018-12-30 16:35 | Operative Report ---
DATE OF PROCEDURE: 12/30/2018 SURGEON: Red Prasad MD PREOPERATIVE DIAGNOSIS: Elevated prostate-specific antigen and urinary retention. POSTOPERATIVE DIAGNOSIS: Elevated prostate-specific antigen and urinary retention. OPERATION PERFORMED: Ultrasound-directed transrectal prostate biopsy. ANESTHESIA: IV sedation with monitored anesthesia care. INDICATIONS: This patient is an 83-year-old white male, who went into urinary retention following a right inguinal hernia repair. The patient was given a trial of voiding, which he failed. The patient had been told that he had an enlarged prostate and elevated PSA in the past. He has had 2 benign prostate biopsies over 10 years ago in [place]. The patient had a prostate-specific antigen of 9.5 in November of 2018. For further details, please refer to history and physical. Procedure was done in the following fashion. PROCEDURE IN DETAIL: The patient was taken to the operating room and the Romo catheter removed. He was placed under IV sedation and monitored anesthesia care and placed in a lateral decubitus position with the right side up. An ultrasound scan of the prostate was performed. This revealed evidence of enlarged prostate. There were some internal calcifications present. There were no discrete hypoechoic areas. Seminal vesicles appeared normal. Sextant biopsies of prostate were performed using the Symetrica spring-loaded biopsy gun. Specimens were taken from the right base lateral, then right base medial, then right mid lateral, then right mid medial, then right apex lateral, then right apex medial, then left base lateral, then left base medial, then left mid lateral, then left mid medial, then left apex lateral, then left apex medial. Once this was accomplished, the ultrasound probe was removed and pressure applied to the anus where the patient had some small hemorrhoids. The bleeding was minimal. The patient was then returned to the supine position and a 16-Faroese Romo catheter inserted. The patient tolerated the procedure well and left the operating room in good condition. My plan is to monitor the patient overnight on IV antibiotics. If he does well overnight, I anticipate sending him home tomorrow with a Romo catheter. Red Prasad MD TIFFANY/MODL /[id number]
[2018-12-30] MEDS ORDERED: MIDAZOLAM HCL 2 MG/2 ML VIAL ONE (17:51)
[2018-12-30] MEDS ORDERED: KETAMINE HCL INJ 50 MG/ML 10 ML VIAL ONE (17:51)
[2018-12-30] MEDS ORDERED: PROPOFOL IV EMULSION 10 MG/ML 20 ML VIAL ONE (17:51)
[2018-12-30] MEDS ORDERED: FENTANYL CITRATE/PF 100MCG/2 ML INJ ONE (17:51)
[2018-12-30] MEDS ORDERED: LIDOCAINE HCL 2% LOCAL INJ 5 ML SDV VIAL INJ ONE (17:51)
--- NOTE | 2018-12-30 18:50 | NUR ---
walking rounds made with assistant shift supervisor nurse, patient aware of change and in no distress. call link within reach and bed in lowest position.
[2018-12-30 20:19] VITALS: BP 131/71
[2018-12-30 20:27] VITALS: BP 131/71
[2018-12-30] MEDS ORDERED: ATORVASTATIN 20 MG TAB PO SCH (21:00)
[2018-12-31] VITALS: BP 128/70
[2018-12-31] MEDS: CEFOXITIN 1GM/ D5W 50ML 50 ML IV SCH ×2 (04:07→09:46)
[2018-12-31 05:29] VITALS: BP 122/57
--- NOTE | 2018-12-31 06:53 | NUR ---
REPORT GIVEN TO ONCOMING NURSE,WALKING ROUNDS MADE.PT RESTING IN BED WITH NO S/S OF DISTRESS.
[2018-12-31] MEDS: SODIUM CHLORIDE 0.9% 1000ML 1,000 ML IV SCH ×2 (06:56→08:30)
[2018-12-31] MEDS ORDERED: PANTOPRAZOLE SOD 40 MG TABEC PO SCH (07:30)
[2018-12-31 08:30] VITALS: BP 158/83
[2018-12-31] MEDS: METRONIDAZOLE 500 MG TAB PO SCH (08:30)
[2018-12-31] MEDS: ASPIRIN 81 MG CHEW TAB PO SCH (08:30)
[2018-12-31] MEDS: DOCUSATE SODIUM 100 MG CAP PO SCH (08:30)
[2018-12-31] MEDS: CARVEDILOL 12.5 MG TAB PO SCH (08:30)
[2018-12-31] MEDS ORDERED: ACYCLOVIR 200 MG CAP PO SCH (09:00)
[2018-12-31] MEDS ORDERED: CLOPIDOGREL BISULFATE 75 MG TAB PO SCH (09:00)
[2018-12-31] MEDS ORDERED: TAMSULOSIN HCL 0.4 MG CAP PO SCH (09:00)
[2018-12-31] MEDS ORDERED: LOSARTAN POTASSIUM 100 MG TAB PO SCH (09:00)
[2018-12-31] MEDS ORDERED: KEFLEX500 MG PO (12:21)
[2018-12-31] MEDS ORDERED: PNEUMOCOCCAL VACCINE POLYVALENT 23 MCG/0.5 ML VIAL IM NR (12:30)
--- NOTE | 2018-12-31 12:55 | NUR ---
PATIENT ALERT AND ORIENTED WITH AT BEDSIDE. DISCHARGE INSTRUCTIONS GIVEN AT THIS TIME, PATIENT AND VERBALIZED UNDERSTANDING. IV DISCONTINUED, CATHETER IN TACT AND SMALL DRESSING APPLIED. PATIENT TO BE WHEELED OUT TO PERSONAL AUTO FOR TO DRIVE HOME.
--- NOTE | 2018-12-31 13:00 | Progress Note ---
DATE: 12/31/2018 Discharge Progress Note The patient is afebrile. He denies pain at this time. He is eating and drinking without difficulty. The lungs are clear to auscultation and resonant to percussion. The abdomen is soft. The Romo catheter is draining avery-colored urine. He is now 1-day status post ultrasound-directed transrectal prostate biopsy. He is afebrile. His hemoglobin is 13. His hematocrit is 38.8. My plan at this time is to discharge the patient. He will complete his course of metronidazole at home and will resume his preoperative medications. I am also sending him home on Keflex 500 mg one p.o. 4 times a day for the next 7 days. He will have return appointment to see me again in 1 week to go over the results of the prostate biopsy. His Romo catheter remains because he is in urinary retention. Red Prasad MD SRA/MODL /[id number]
== END 2018-12-31 12:59 | disposition home or self-care (01) ==
LOC: OR 09:10 → PACU V 10:59 → MED/SURG 11:56
PROVIDERS: ADMIT Urology; ATTEND Urology
DX: N40.1 Benign prostatic hyperplasia with lower urinary tract symptoms (principal); R97.20 Elevated prostate specific antigen [PSA]; R33.9 Retention of urine, unspecified; E78.5 Hyperlipidemia, unspecified; N13.8 Other obstructive and reflux uropathy; I25.10 Atherosclerotic heart disease of native coronary artery without angina pectoris
CPT/HCPCS: 36415 ×2; 55700; 71046; 76872; 76998; 80053; 82948; 85025; 85610; 85730; 88305; 90732; 93005; G0378 ×2; J2001; J2250; J2704; J3010; J7030 ×2; S0164; 88342; G0009

== ENCOUNTER 2019-03-10 07:27 | Inpatient (IN) | payer MEDICARE, BC ==
[2019-03-06 12:55] LABS: BASOPHILS % 0.4 % (0.0-1.0); EOSINOPHILS # (AUTO) 0.1 (0.0-0.4); EOSINOPHILS % 2.2 % (0.0-6.0); HEMATOCRIT 45.2 % (38.2-49.6); LYMPHOCYTES % 45.4 % (18.0-39.1); MEAN CORPUSCULAR HEMOGLOBIN 29.6 pg (28-32); MEAN CORPUSCULAR HGB CONC 33.2 g/dL (31-35); MEAN CORPUSCULAR VOLUME 89.3 fL (81-99); MONOCYTES # (AUTO) 0.7 (0.2-0.8); NEUTROPHILS # (AUTO) 1.6 (2.1-6.9); NEUTROPHILS % 35.8 % (38.7-80.0); PLATELET COUNT 154 x10e3/uL (140-360); RED BLOOD COUNT 5.06 x10e6/uL (4.3-5.7); RED CELL DISTRIBUTION WIDTH 14.6 % (11.7-14.4)
--- NOTE | 2019-03-06 13:20 | Diagnostic Imaging Report ---
EXAMINATION: CHEST 2 VIEWS INDICATION: Pre-operative COMPARISON: Chest radiograph of 12/27/2018 FINDINGS: Please note that the initial PA radiograph was flipped and mislabeled. This was subsequently corrected and a correctly labeled image uploaded. LINES/TUBES:None LUNGS:The lungs are well-inflated. No focal consolidation or pulmonary edema. PLEURA:No pleural effusion or pneumothorax. MEDIASTINUM:The cardiomediastinal silhouette appears normal in size and shape. Atherosclerotic calcifications of the thoracic aorta. BONES/SOFT TISSUES:No acute osseous injury. ABDOMEN:No free air under the diaphragm. IMPRESSION: No focal pneumonia or pulmonary edema. Signed by: Zohaib Montelongo MD on 03/06/2019 1:17 PM
[2019-03-06 13:25] LABS: ALANINE AMINOTRANSFERASE 11 IU/L (0-55); ALBUMIN 3.7 g/dL (3.5-5.0); ALKALINE PHOSPHATASE 86 IU/L (40-150); ANION GAP 10.7 mmol/L (8-16); BLOOD UREA NITROGEN 15 mg/dL (7-26); BUN/CREATININE RATIO 16 (6-25); CALCIUM 9.9 mg/dL (8.4-10.2); CARBON DIOXIDE 29 mmol/L (22-29); CHLORIDE 102 mmol/L (98-107); CREATININE, SERUM 0.92 mg/dL (0.72-1.25); EST GLOMERULAR FILTRATION RATE > 60 ML/MIN (60-); GLUCOSE 90 mg/dL (74-118); POTASSIUM 4.7 mmol/L (3.5-5.1); SODIUM 137 mmol/L (136-145)
[2019-03-06 13:28] LABS: INR 0.99; PARTIAL THROMBOPLASTIN TIME 35.6 seconds (23.8-35.5); PROTHROMBIN TIME 13.6 seconds (11.9-14.5)
[~2019-03-10] VITALS: Ht 177.8 cm; Wt 91.2 kg
[~2019-03-10 07:27] MED LIST changes: +HYDRALAZINE HCL10 MG PO; +KEFLEX500 MG PO; +METRONIDAZOLE500 MG PO; +hydralazine PO
[2019-03-10] MEDS ORDERED: CEFOXITIN 1GM/ D5W 50ML 50 ML IV ONE (08:03)
[2019-03-10] MEDS ORDERED: IOPAMIDOL 300MG/ML 50ML INFUS..BTL IV ONE (09:17)
[2019-03-10] MEDS ORDERED: BUPIVACAINE 7.5MG/ML /DEXTROSE 82.5MG/ML 2 ML AMP INJ ONE (10:07)
[2019-03-10] MEDS ORDERED: MORPHINE SULFATE INJ 4 MG/ML INJ 1ML IV PRN (12:45)
[2019-03-10 13:51] VITALS: BP 149/78
--- NOTE | 2019-03-10 14:09 | NUR ---
Patient alert and responsive, received from PACU and CBI running, no distress, c/o headaches and will medicated with Tylenol. Romo in place, call light within reach and bed in low locked position. by bedside and will monitor.
[2019-03-10 14:14] VITALS: BP 149/78
[2019-03-10] MEDS: SODIUM CHLORIDE 0.9% 1000ML 1,000 ML IV SCH (14:31)
[2019-03-10] MEDS: HYDROCODONE/APAP 7.5MG-325MG 1 EA TAB PO PRN (14:32)
[2019-03-10] MEDS: ACETAMINOPHEN 325 MG TAB PO PRN ×2 (14:33→21:30)
[2019-03-10] MEDS: CEFOXITIN 1GM/ D5W 50ML 50 ML IV SCH ×2 (16:20→21:30)
[2019-03-10] MEDS: CARVEDILOL 12.5 MG TAB PO SCH (16:21)
[2019-03-10] MEDS: DOCUSATE SODIUM 100 MG CAP PO SCH (16:21)
[2019-03-10] MEDS: ASPIRIN 81 MG CHEW TAB PO SCH (16:21)
[2019-03-10 16:28] VITALS: BP 188/81
[2019-03-10] MEDS ORDERED: FENTANYL CITRATE/PF 100MCG/2 ML INJ ONE (18:16)
[2019-03-10] MEDS ORDERED: MIDAZOLAM HCL 2 MG/2 ML VIAL ONE (18:16)
--- NOTE | 2019-03-10 20:19 | Operative Report ---
DATE OF PROCEDURE: 03/10/2019 SURGEON: Red Prasad MD LOCATION: [facility]. PREOPERATIVE DIAGNOSIS: Prostate cancer and urinary retention. POSTOPERATIVE DIAGNOSIS: Prostate cancer and urinary retention. OPERATION PERFORMED: GreenLight photo vaporization of the prostate. ANESTHESIA: Spinal. INDICATIONS: This patient is an 84-year-old white male, who went into acute urinary retention after a right inguinal hernia repair in November of 2018. He had seen another urologist for whatever reason, was ultimately came to see me. He was given a trial of voiding and went back into urinary retention. The patient has had a cystoscopy, but could not urinate afterwards. The cystoscopy revealed an enormous prostate with an enlarged lobe. The patient had a prostate-specific antigen of 9.5 in November of 2018. The patient went on to have an ultrasound-directed transrectal prostate biopsy on December 30, 2018. 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 The patient would not have a bone scan and a CT scan revealed no evidence of metastatic disease. The patient is now coming in for a GreenLight photo vaporization of the prostate. 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 He has had a spinal fusion and other orthopedic procedures. For further details, please refer to the history and physical. The procedure was done in following fashion. PROCEDURE IN DETAIL: The patient was taken to the operating room and given a spinal anesthetic. Once the spinal was in position, the patient was dressed and draped with Hibiclens in lithotomy position in the usual fashion and the Romo catheter had been removed. Cystourethroscopy was performed with Olympus rigid cystoscope. The sphincter and verumontanum were intact. The urethra was inflamed. The distance with the verumontanum to the bladder neck was estimated at about 6 cm and was markedly enlarged middle lobe. The bladder had mild trabeculation, it was difficult to see the ureteral orifices. There was some calcifications present in the bladder and by the shape they look like they had encrustations around the Romo catheter balloon, but I was able to visualize the ureteral orifices, but it was very difficult. The laser cystoscope was inserted and 30-degree oblique lens was used and video camera attachment, it was used throughout the procedure. In view of the difficulty seeing the ureteral orifices and the size of the middle lobe, I first started by cutting the groove in between the middle lobe and the left lateral lobe, and this was at about the 7 o'clock position and this was done first starting with the laser on 80 vega and coagulation on 80, and I slowly worked my way back from the bladder neck area and as I got further and further closer to the verumontanum and away from the bladder neck, I increased the vaporization from 80-140 and then to 160 until I got back to the area of the verumontanum. A similar procedure was then done to cut the groove on the right side of the middle lobe going from the bladder neck area starting at 80 and then going up to 140 and then to 160 in between the right lateral lobe and the middle lobe cutting my way back to the verumontanum. Once this was accomplished, I then kept the laser on 160 and started working on the middle lobe. As I moved away from the bladder neck area, I then went up to 180. As the middle lobe was vaporized, then devoted attention to the left lateral lobe and then to the right lateral lobe, and then began the process of cleaning up the floor of the prostate and making sure that he had a wide open prostate. The blood loss was estimated about 10 mL. The total laser time was 41 minutes and 45 seconds. The total energy used was [id number] joules. The bladder was evacuated using an Ellik to get some tissue and burnt fragments out. I then went to put in a 22-Cambodian coude three way, but the prostatic fossa was so deep that it did not want to go in easily. Therefore, I reinserted the laser cystoscope under direct vision and passed an Amplatz superstiff guidewire. The laser cystoscope was withdrawn and the coude 22-Cambod[address] three way with a 30 mL balloon was then passed over the Amplatz Super Stiff guidewire. When the catheter was in good position, the guidewire was removed and the balloon inflated to 30 mL, and the continuous bladder irrigation during the surgery was done with normal saline and the patient left the operating room in good condition with the coude catheter to continuous bladder irrigation with normal saline. Dr. Carin Daniels who has been consulted to help with postoperative care. Red Prasad MD SRA/SELINA /[id number]
[2019-03-10 20:31] VITALS: BP 104/53
[2019-03-10 23:46] VITALS: BP 117/58
[2019-03-11] MEDS: SODIUM CHLORIDE 0.9% 1000ML 1,000 ML IV SCH ×4 (00:40→22:10)
[2019-03-11 04:00] VITALS: BP 152/68
[2019-03-11] MEDS: CEFOXITIN 1GM/ D5W 50ML 50 ML IV SCH ×4 (04:00→22:04)
--- NOTE | 2019-03-11 07:30 | NUR ---
Received patient this morning, a/ox3, no resp distress, assisted OOB to chair and ambulated briefly in room noted some hematuria, continuous CBI, pains well managed, call light within reach and will monitor.
[2019-03-11] MEDS: CARVEDILOL 12.5 MG TAB PO SCH ×2 (08:13→17:00)
[2019-03-11] MEDS: ASPIRIN 81 MG CHEW TAB PO SCH ×2 (08:13→17:00)
[2019-03-11] MEDS: HYDRALAZINE HCL 100 MG TABLET PO SCH (08:13)
[2019-03-11] MEDS: LOSARTAN POTASSIUM 100 MG TAB PO SCH (08:13)
[2019-03-11] MEDS: DOCUSATE SODIUM 100 MG CAP PO SCH ×2 (08:13→17:49)
[2019-03-11] MEDS: ATORVASTATIN 40 MG TAB PO SCH (08:14)
[2019-03-11] MEDS: PANTOPRAZOLE SOD 40 MG TABEC PO SCH (08:14)
[2019-03-11 08:22] VITALS: BP 174/75
[2019-03-11] MEDS: ACYCLOVIR 200 MG CAP PO SCH (08:23)
[2019-03-11 11:50] VITALS: BP 127/60
--- NOTE | 2019-03-11 11:54 | NUR ---
Rounds by urologist and wants Romo cath taken out tomorrow in the morning for a voiding trial. He is ok with giving patient Plavix at this time.
[2019-03-11] MEDS: CLOPIDOGREL BISULFATE 75 MG TAB PO SCH (11:56)
--- NOTE | 2019-03-11 12:41 | Progress Note ---
DATE: 03/11/2019 SUBJECTIVE: Today is the first postoperative day, status post GreenLight photovaporization of an enormous prostate. The catheter efflux is clear with the continuous bladder irrigation with normal saline running at a very slow rate. The patient is able to move his legs. He was able to get up and walk around. My plan at this time is to remove the catheter in the tomorrow morning for a trial of voiding. PHYSICAL EXAMINATION: GENERAL: Reveals that the patient is alert and oriented to person, place, and time. He is eating without difficulty. LUNGS: Clear. ABDOMEN: Soft. There is no evidence of a deep venous thrombophlebitis. There is no evidence of epididymitis. PLAN: At this time is to remove the Romo catheter tomorrow for trial of voiding. Red Prasad MD SRA/MODL /[id number]
[2019-03-11] MEDS: HYDROCODONE/APAP 7.5MG-325MG 1 EA TAB PO PRN (14:03)
--- NOTE | 2019-03-11 14:23 | NUR ---
Patient OOB and ambulated hallway about 200 feet, medicated for pain, Romo in place draining and continues on CBI, will monitor.
[2019-03-11] MEDS ORDERED: INFLUENZA VIRUS VAC SPLIT INJ 0.5 ML SYR IM SCH (15:45)
[2019-03-11 16:43] VITALS: BP 123/59
--- NOTE | 2019-03-11 16:57 | History and Physical ---
CHIEF COMPLAINT: Status post TURP. HISTORY OF PRESENT ILLNESS: An 84-year-old male with history of prostate cancer, history of right inguinal hernia repair back in November of 2018, revealed to have adenocarcinoma of the prostate after a biopsy performed in December 2018, came in yesterday, has an elective procedure and had a GreenLight photovaporization of the prostate performed by Dr. Prasad, Urology. The patient also had some underlying urinary retention as well. The patient was evaluated at bedside. Currently, he is doing well with no other issues at this time. The patient also has multiple comorbidities, of note has a history of CAD in the past as well as spinal fusion. The patient is currently doing well with no other issues at this time. Romo will be removed tomorrow according to the nursing staff. REVIEW OF SYSTEMS: Pertinent positives: GreenLight photovaporization of prostate. Pertinent negatives: Denies any chest pain, palpitation, nausea, vomiting, diarrhea, dysuria, hematuria, frequency, urgency, lightheadedness, dizziness, abdominal pain, headaches, shortness of breath, cough, congestion, fever, or any other complaints. The rest of 14-point review of systems have been reviewed with the patient and are negative. ALLERGIES: TETANUS AND DIPHTHEROID TOXINS. PAST MEDICAL HISTORY: History of CAD, history of lumbar spine surgery, surgery of the larynx, malignant neoplasm of the larynx, and had radiation therapy of the larynx. He has spinal fusion as well as otherwise orthopedic procedures. History of prostate cancer. PAST SURGICAL HISTORY: Photovaporization of the prostate, he had radiation therapy to the larynx. He also has spinal fusion as well as other orthopedic surgeries. FAMILY HISTORY: Hypertension and diabetes. SOCIAL HISTORY: No drugs. No alcohol. Does not smoke. Good social support. PHYSICAL EXAMINATION: VITAL SIGNS: Temperature is 98.3, pulse 52, respiratory rate 17, blood pressure is 122/60, and pulse ox 96% on room air. GENERAL: Not in acute distress. Alert and oriented x3. Cooperative on examination. HEENT: Head; normocephalic, atraumatic. Eyes; pupils are equal, round, and reactive to light bilaterally. Extraocular movements intact bilaterally. Throat; no evidence of erythema or exudates in the posterior pharynx. Has poor dentition. NECK: Supple. Good range of motion. PULMONARY: Clear to auscultation bilaterally. No wheezing, no rales, no rhonchi, no crackles appreciated. CARDIOVASCULAR: Positive S1 and S2. No murmurs, rubs, or gallops appreciated. ABDOMEN: Soft, nondistended, and nontender to palpation. Bowel sounds present. MUSCULOSKELETAL: Strength is 5/5 throughout. No evidence of any muscle deficits on examination. No weakness appreciated. NEUROLOGIC: Cranial nerve II through XII grossly intact. No evidence of any neurological deficits on exam. SKIN: Intact. Warm to touch. Good cap refill. PSYCHIATRIC: Normal affect and mood. EXTREMITIES: No edema. Good range of motion throughout. LABORATORY FINDINGS: Show white count 4.4, hemoglobin 15, hematocrit is 45, platelets of 154. Coagulation; PT 13, INR 0.99, PTT 35.6. Chemistry; sodium 136, potassium 4.7, chloride 102, chloride 102, bicarbonate 29, anion gap of 10, BUN is 15, creatinine 0.92. MICROBIOLOGY: None. IMAGING STUDIES: Chest x-ray, no focal pneumonia or pulmonary edema. IMPRESSION: 1. Status post GreenLight photovaporization of the prostate. 2. History of hyperlipidemia. 3. Hypertension. 4. History of coronary artery disease. PLAN: At this time, continue to follow with Urology recommendations. He had GreenLight photovaporization performed yesterday on 03/10/2019. He still has a Romo, which will likely removed tomorrow according to the nursing staff. Urology is following. Resume same antihypertensive medications. Monitor blood pressure very closely. Resume the cardioprotective medications as well. I will put him on SCDs for DVT prophylaxis. Encourage ambulation, PT and OT as well. Due to this recent photovaporization, he has a Romo catheter with bladder irrigation. I think we can hold on anticoagulation for now. Continue with SCDs and monitor very closely. Hopefully, he will be discharged in the next 1 to 2 days. MD MIRELLA Rubin/SELINA /[id number]
[2019-03-11 20:00] VITALS: BP 156/70
[2019-03-12] VITALS: BP 134/61
[2019-03-12 04:00] VITALS: BP 163/74
[2019-03-12] MEDS: CEFOXITIN 1GM/ D5W 50ML 50 ML IV SCH ×4 (04:06→22:00)
[2019-03-12] MEDS: SODIUM CHLORIDE 0.9% 1000ML 1,000 ML IV SCH ×2 (04:42→17:02)
[2019-03-12 06:18] LABS: BASOPHILS % 0.4 % (0.0-1.0); EOSINOPHILS # (AUTO) 0.1 (0.0-0.4); EOSINOPHILS % 0.9 % (0.0-6.0); HEMATOCRIT 38.6 % (38.2-49.6); HEMOGLOBIN 12.8 g/dL (14.0-18.0); LYMPHOCYTES # (AUTO) 1.5 (1.0-3.2); LYMPHOCYTES % 18.9 % (18.0-39.1); MEAN CORPUSCULAR HEMOGLOBIN 29.7 pg (28-32); MEAN CORPUSCULAR HGB CONC 33.2 g/dL (31-35); MEAN CORPUSCULAR VOLUME 89.6 fL (81-99); MONOCYTES # (AUTO) 1.3 (0.2-0.8); MONOCYTES % 16.4 % (4.4-11.3); NEUTROPHILS % 63.3 % (38.7-80.0); PLATELET COUNT 115 x10e3/uL (140-360); RED BLOOD COUNT 4.31 x10e6/uL (4.3-5.7); RED CELL DISTRIBUTION WIDTH 14.1 % (11.7-14.4)
[2019-03-12 06:40] LABS: ANION GAP 8.9 mmol/L (8-16); BLOOD UREA NITROGEN 10 mg/dL (7-26); BUN/CREATININE RATIO 12 (6-25); CALCIUM 8.5 mg/dL (8.4-10.2); CARBON DIOXIDE 25 mmol/L (22-29); CHLORIDE 106 mmol/L (98-107); CREATININE, SERUM 0.84 mg/dL (0.72-1.25); EST GLOMERULAR FILTRATION RATE > 60 ML/MIN (60-); GLUCOSE 97 mg/dL (74-118); POTASSIUM 3.9 mmol/L (3.5-5.1); SODIUM 136 mmol/L (136-145)
--- NOTE | 2019-03-12 06:40 | NUR ---
RING CATHETER DC'D PER MD ORDER.
[2019-03-12] MEDS: HYDROCODONE/APAP 7.5MG-325MG 1 EA TAB PO PRN (07:42)
[2019-03-12] MEDS: DOCUSATE SODIUM 100 MG CAP PO SCH ×2 (08:45→17:02)
[2019-03-12] MEDS: ASPIRIN 81 MG CHEW TAB PO SCH ×2 (08:45→17:02)
[2019-03-12] MEDS: ATORVASTATIN 40 MG TAB PO SCH (08:45)
[2019-03-12] MEDS: CLOPIDOGREL BISULFATE 75 MG TAB PO SCH (08:45)
[2019-03-12] MEDS: PANTOPRAZOLE SOD 40 MG TABEC PO SCH (08:45)
[2019-03-12] MEDS ORDERED: PHE/SHARK LIVER OIL/COCOA BUT 24 EA SUPP RC PRN (09:45)
[2019-03-12] MEDS: ACYCLOVIR 200 MG CAP PO SCH (09:58)
[2019-03-12] MEDS: HYDRALAZINE HCL 100 MG TABLET PO SCH (09:59)
[2019-03-12] MEDS: LOSARTAN POTASSIUM 100 MG TAB PO SCH (09:59)
[2019-03-12] MEDS: CARVEDILOL 12.5 MG TAB PO SCH ×2 (09:59→17:00)
--- NOTE | 2019-03-12 10:25 | NUR ---
Reported pains by patient to suprapubic region, bladder scanned and amount 605cc, notified Dr. Prasad and orders to insert Romo. Inserted Romo 22 FR Caude cath and drained 700cc. Patient reported s/p area pain much relieved and also had a BM. Will monitor.
[2019-03-12 10:49] LABS: PLATELET ESTIMATE MODERATELY DECREASED; PLATELET MORPHOLOGY COMMENT FEW LARGE; RBC MORPHOLOGY COMMENT NORMAL
--- NOTE | 2019-03-12 11:24 | NUR ---
rounds by Dr. Prasad, call to Dr. Daniels about fever 101.8, orders for blood cultures, urine culture and APAP given, start ceftriaxone q24
[2019-03-12] MEDS: ACETAMINOPHEN 325 MG TAB PO PRN (11:25)
[2019-03-12] MEDS: CEFTRIAXONE SOD 1 GM/NS 50 ML 50 ML IV SCH (11:44)
[2019-03-12 12:07] VITALS: BP 148/67
--- NOTE | 2019-03-12 12:56 | Progress Note ---
DATE: 03/12/2019 SUBJECTIVE: The Romo catheter was removed this morning for a trial of voiding. The patient went into urinary retention. He initially was complaining of abdominal pain then he had a bowel movement, which made him feel better, but he still could not urinate. A bladder scan showed about 600 mL in the bladder, I was notified by the nursing staff about what was going on. They inserted a 22-[place] coude catheter and the patient had a 700 mL residual and he felt much better. However, after that was done, he spiked his temperature to 100. His temperature this morning before he went into retention was 98.3, his hemoglobin was 12.8, his hematocrit was 38.1, and his white count was 7.82. In view of the spiked fever, the nursing staff contacted his consulting physician, Dr. Daniels, who ordered a urine and blood culture and sensitivity. These events are not surprising in view of the patient, but in urinary retention for quite a while and had an indwelling Romo catheter for several weeks prior to the procedure. PHYSICAL EXAMINATION: GENERAL: At this time reveals patient is alert and oriented to person, place, and time. He denies pain. LUNGS: He is breathing without difficulty. ABDOMEN: Soft. GENITOURINARY: The penis is not circumcised. The catheter is draining avery colored urine. The testicles show no evidence of epididymitis. EXTREMITIES: There is no evidence of calf tenderness. PLAN: My plan at this time is to keep the patient as a full admission. Further recommendations will be made to see when his temperature goes down and once results of the blood and urine culture and sensitivities come back. Meanwhile, I told the patient that would be time for him to get a trial of voiding when he starts urinating around the catheter. The patient was also advised that he will most likely go home with the catheter for at least two weeks. Red Prasad MD SRA/REGANL /[id number]
--- NOTE | 2019-03-12 14:06 | Progress Note ---
DATE: 03/12/2019 Medicine Progress Note SUBJECTIVE: The patient had some suprapubic pain today after the Romo was removed. Noticed to have some urinary retention and the Romo had to be reinserted back by Urology's recommendations. He did develop a fever, guy cultures were collected and IV antibiotics were started. PHYSICAL EXAMINATION: VITAL SIGNS: Temperature is 101.8, pulse 82, respiratory rate is 20, blood pressure 140/67, and pulse ox 95% on room air. GENERAL: Not in acute distress. Alert and oriented x3. Cooperative on examination. HEENT: Head; normocephalic, atraumatic. Eyes; pupils are equal, round, and reactive to light bilaterally. Extraocular movements intact bilaterally. Throat; no evidence of erythema or exudates in the posterior pharynx. Has poor dentition. NECK: Supple. Good range of motion. PULMONARY: Clear to auscultation bilaterally. No wheezing, no rales, no rhonchi, no crackles appreciated. CARDIOVASCULAR: Positive S1 and S2. No murmurs, rubs, or gallops appreciated. ABDOMEN: Soft, nondistended, and nontender to palpation. Bowel sounds present. MUSCULOSKELETAL: Strength is 5/5 throughout. No evidence of any muscle deficits on examination. No weakness appreciated. NEUROLOGIC: Cranial nerve II through XII grossly intact. No evidence of any neurological deficits on exam. SKIN: Intact. Warm to touch. Good cap refill. PSYCHIATRIC: Normal affect and mood. EXTREMITIES: No edema. Good range of motion throughout. LABORATORY FINDINGS: Show white count 7.8, hemoglobin 12.8, hematocrit 38.6, platelets of 115. Chemistry; sodium 136, potassium 3.9, chloride 106, bicarb 25, anion gap is 8.9, BUN is 10, creatinine is 0.84, glucose is 97, calcium is 8.5. MICROBIOLOGY: Blood and urine cultures are pending. IMPRESSION: 1. Status post GreenLight photovaporization of the prostate, now with urinary retention, reinsertion of Romo catheter. 2. History of hyperlipidemia. 3. Hypertension. 4. History of coronary artery disease. 5. Fever, likely due to underlying urinary retention. PLAN: At this time, Romo was reinserted back today due to urinary retention by Urology. He had a fever this morning and which blood and urine cultures collected. IV Rocephin was started. The patient will continue with the Romo catheter for 2 weeks according to Urology's note and will need outpatient followup at a later date. At this time, he will need to be here until his blood and urine cultures are back, and we will continue with IV antibiotics for now. Get a.m. labs as well. I discussed the plan of care with the patient and the patient's at bedside including the nursing staff. Otherwise, we will continue with same plan of care and monitor closely. He will likely be here several more days until the cultures are back. MD MIRELLA Rubin/SELINA /[id number]
[2019-03-12 15:42] VITALS: BP 94/55
--- NOTE | 2019-03-12 16:36 | NUR ---
Fever resolving, down to 99.2, OOB and ambulated about 200 feet x2 today, sitting up on chair at this time for dinner, pains well managed, Romo in place draining pink urine, call light within reach, no N/V, blood cultures and urine cultures pending, will monitor.
[2019-03-12 20:44] VITALS: BP 113/58
[2019-03-13] VITALS (8 sets, daily range): BP systolic 105–184; BP diastolic 53–84
[2019-03-13] MEDS: SODIUM CHLORIDE 0.9% 1000ML 1,000 ML IV SCH ×3 (00:05→22:54)
[2019-03-13] MEDS: CEFOXITIN 1GM/ D5W 50ML 50 ML IV SCH ×3 (03:58→16:07)
[2019-03-13 05:32] LABS: BASOPHILS % 0.3 % (0.0-1.0); EOSINOPHILS # (AUTO) 0.1 (0.0-0.4); EOSINOPHILS % 1.4 % (0.0-6.0); HEMATOCRIT 35.8 % (38.2-49.6); HEMOGLOBIN 11.9 g/dL (14.0-18.0); LYMPHOCYTES # (AUTO) 1.1 (1.0-3.2); LYMPHOCYTES % 14.2 % (18.0-39.1); MEAN CORPUSCULAR HEMOGLOBIN 29.8 pg (28-32); MEAN CORPUSCULAR HGB CONC 33.2 g/dL (31-35); MEAN CORPUSCULAR VOLUME 89.5 fL (81-99); MONOCYTES # (AUTO) 1.3 (0.2-0.8); MONOCYTES % 16.8 % (4.4-11.3); NEUTROPHILS # (AUTO) 5.2 (2.1-6.9); NEUTROPHILS % 66.9 % (38.7-80.0); PLATELET COUNT 108 x10e3/uL (140-360); RED CELL DISTRIBUTION WIDTH 14.2 % (11.7-14.4)
[2019-03-13 06:29] LABS: EOSINOPHILS % (MANUAL) 1 % (0-7); LYMPHOCYTES % (MANUAL) 35 % (19-48); MONOCYTES % (MANUAL) 7 % (3.4-9.0); NEUTROPHILS % (MANUAL) 56 % (40-74)
--- NOTE | 2019-03-13 07:00 | NUR ---
bedside shift report received, no distress noted, updated on poc voiced understanding, denies pain at this time, ivf infusing to r hand 20g no ss of infiltration noted, no other co vocied call light n reach will continue to monitor
[2019-03-13 07:49] LABS: ANION GAP 9.9 mmol/L (8-16); CALCIUM 8.3 mg/dL (8.4-10.2); CREATININE, SERUM 1.15 mg/dL (0.72-1.25); POTASSIUM 3.9 mmol/L (3.5-5.1)
[2019-03-13] MEDS: DOCUSATE SODIUM 100 MG CAP PO SCH ×2 (09:09→16:07)
[2019-03-13] MEDS: ASPIRIN 81 MG CHEW TAB PO SCH ×2 (09:09→16:07)
[2019-03-13] MEDS: LOSARTAN POTASSIUM 100 MG TAB PO SCH (09:10)
[2019-03-13] MEDS: CARVEDILOL 12.5 MG TAB PO SCH ×2 (09:10→16:07)
[2019-03-13] MEDS: HYDRALAZINE HCL 100 MG TABLET PO SCH (09:11)
[2019-03-13] MEDS: CLOPIDOGREL BISULFATE 75 MG TAB PO SCH (09:11)
[2019-03-13] MEDS: ATORVASTATIN 40 MG TAB PO SCH (09:11)
[2019-03-13] MEDS: PANTOPRAZOLE SOD 40 MG TABEC PO SCH (09:12)
[2019-03-13] MEDS: ACYCLOVIR 200 MG CAP PO SCH (09:12)
[2019-03-13] MEDS: CEFTRIAXONE SOD 1 GM/NS 50 ML 50 ML IV SCH (11:00)
--- NOTE | 2019-03-13 12:21 | Progress Note ---
DATE: 03/13/2019 Medicine Progress Note SUBJECTIVE: The patient is doing much better today with no complaints. He is afebrile over the last 24 hours. Urine cultures positive. Blood cultures, no growth to date. PHYSICAL EXAMINATION: VITAL SIGNS: Temperature is 98.9, pulse 64, respiratory rate is 20, blood pressure 133/62, and pulse ox 95% on room air. GENERAL: Not in acute distress. Alert and oriented x3. Cooperative on examination. HEENT: Head, normocephalic and atraumatic. Eyes; pupils are equal, round, and reactive to light bilaterally. Extraocular movements intact bilaterally. Throat, no evidence of erythema or exudates in the posterior pharynx. Has poor dentition. NECK: Supple. Good range of motion. PULMONARY: Clear to auscultation bilaterally. No wheezing, no rales, no rhonchi, and no crackles appreciated. CARDIOVASCULAR: Positive S1 and S2. No murmurs, rubs, or gallops appreciated. ABDOMEN: Soft, nondistended, and nontender to palpation. Bowel sounds present. MUSCULOSKELETAL: Strength is 5/5 throughout. No evidence of any muscle deficits on examination. No weakness appreciated. NEUROLOGIC: Cranial nerves II through XII grossly intact. No evidence of any neurological deficits on exam. SKIN: Intact. Warm to touch. Good cap refill. PSYCHIATRIC: Normal affect and mood. EXTREMITIES: No edema. Good range of motion throughout. LABORATORY FINDINGS: Show white count 7.8, hemoglobin 11.9, hematocrit is 35, and platelets of 108. Chemistry; sodium 135, potassium 3.9, chloride 104, bicarb 25, anion gap is 9.9, BUN 16, creatinine is 1.1, glucose is 100, and calcium is 8.3. LFTs within normal range. MICROBIOLOGY: Blood cultures, no growth to date. Urine culture, Staphylococcus species, pending sensitivities. IMAGING STUDIES: None. IMPRESSION: 1. Status post GreenLight photovaporization of the prostate, now with urinary retention, reinsertion of the Romo catheter placed on 03/12/2019. 2. History of hyperlipidemia. 3. Hypertension. 4. History of coronary artery disease. 5. Fever with underlying urinary retention likely due to underlying urinary tract infection. PLAN: At this time, urine cultures positive for Streptococcus, pending sensitivities. Continue with IV Rocephin for now. Blood culture showed no growth to date. We will continue with the Romo catheter for two more weeks per Urology's note. If the patient is afebrile tomorrow, his sensitivities are back and his blood cultures are negative and his labs are normal and he is doing well, he can likely be discharged tomorrow. I discussed the plan of care with the nursing staff and the patient at bedside. MD MIRELLA Ruibn/SELINA /[id number]
--- NOTE | 2019-03-13 18:19 | Progress Note ---
DATE: 03/13/2019 The patient went into urinary retention yesterday when he had his trial of voiding and he had a coude catheter inserted, but he did spike a fever to 101.8. Dr. Daniels started him on Rocephin and meanwhile the patient has since been afebrile. He is afebrile today with a temperature of 97.6. His white blood cell count is 7.8, hemoglobin is 11.9, and hematocrit 35.8. His sodium is 135, potassium 3.9, BUN 16, and creatinine 1.15. The patient is alert and oriented to person, place, and time. He is eating and drinking and breathing without difficulty. His abdomen is soft. There is no evidence of epididymitis. The coude catheter is draining avery colored urine with no clots. The patient's blood culture and sensitivity preliminary shows no growth after 24 hours. Urine culture preliminary show Streptococcus species, final culture and sensitivities pending. I think this is most likely a skin contaminant. Meanwhile, I am thinking if the patient can go two days without fever, I may be able to send him home with a Romo catheter. I advised him that I would not consider him for removing the Romo catheter until he starts having bladder spasms and he was urinating around the catheter. This may take a while in view that his bladder was so severely distended at the time of his herniorrhaphy and that he was probably having severe prostatism well before the hernia repair as well. I have stopped the patient's Mefoxin. I do not see the need for the patient to be on Mefoxin while he is simultaneously on Rocephin. Red Prasad MD SRA/MODL /[id number]
[2019-03-13] MEDS: HYDRALAZINE HCL 20 MG/ML VIAL IV PRN (20:44)
[2019-03-14] VITALS (8 sets, daily range): BP systolic 145–189; BP diastolic 67–86
[2019-03-14 05:30] LABS: BASOPHILS % 0.3 % (0.0-1.0); EOSINOPHILS # (AUTO) 0.1 (0.0-0.4); EOSINOPHILS % 2.3 % (0.0-6.0); HEMATOCRIT 36.2 % (38.2-49.6); LYMPHOCYTES # (AUTO) 1.5 (1.0-3.2); LYMPHOCYTES % 23.9 % (18.0-39.1); MEAN CORPUSCULAR HEMOGLOBIN 29.4 pg (28-32); MEAN CORPUSCULAR HGB CONC 33.1 g/dL (31-35); MEAN CORPUSCULAR VOLUME 88.7 fL (81-99); MONOCYTES # (AUTO) 1.2 (0.2-0.8); MONOCYTES % 19.7 % (4.4-11.3); NEUTROPHILS # (AUTO) 3.3 (2.1-6.9); NEUTROPHILS % 53.5 % (38.7-80.0); PLATELET COUNT 121 x10e3/uL (140-360); RED BLOOD COUNT 4.08 x10e6/uL (4.3-5.7); RED CELL DISTRIBUTION WIDTH 14.3 % (11.7-14.4)
[2019-03-14 05:52] LABS: ANION GAP 10.1 mmol/L (8-16); BLOOD UREA NITROGEN 14 mg/dL (7-26); BUN/CREATININE RATIO 17 (6-25); CALCIUM 8.3 mg/dL (8.4-10.2); CARBON DIOXIDE 22 mmol/L (22-29); CHLORIDE 108 mmol/L (98-107); CREATININE, SERUM 0.82 mg/dL (0.72-1.25); EST GLOMERULAR FILTRATION RATE > 60 ML/MIN (60-); GLUCOSE 101 mg/dL (74-118); POTASSIUM 4.1 mmol/L (3.5-5.1); SODIUM 136 mmol/L (136-145)
[2019-03-14 06:54] LABS: PLATELET ESTIMATE ADEQUATE; PLATELET MORPHOLOGY COMMENT RARE EDTA CLUMPING; RBC MORPHOLOGY COMMENT NORMAL
--- NOTE | 2019-03-14 07:00 | NUR ---
RECEIVED PATIENT RESTING IN BED NO S/S OF DISTRESS. BED LOW, WHEELS LOCKED, SIDE RAILS X2. CALL LIGHT IN REACH WILL CONTINUE TO MONITOR PATIENT.
[2019-03-14] MEDS: LOSARTAN POTASSIUM 100 MG TAB PO SCH (08:20)
[2019-03-14] MEDS: HYDRALAZINE HCL 100 MG TABLET PO SCH ×2 (08:20→20:46)
[2019-03-14] MEDS: CLOPIDOGREL BISULFATE 75 MG TAB PO SCH (08:20)
[2019-03-14] MEDS: SODIUM CHLORIDE 0.9% 1000ML 1,000 ML IV SCH ×2 (08:20→16:39)
[2019-03-14] MEDS: DOCUSATE SODIUM 100 MG CAP PO SCH ×2 (08:20→16:38)
[2019-03-14] MEDS: PANTOPRAZOLE SOD 40 MG TABEC PO SCH (08:20)
[2019-03-14] MEDS: ASPIRIN 81 MG CHEW TAB PO SCH ×2 (08:20→16:38)
[2019-03-14] MEDS: ATORVASTATIN 40 MG TAB PO SCH (08:20)
[2019-03-14] MEDS: ACYCLOVIR 200 MG CAP PO SCH (08:20)
[2019-03-14] MEDS: CARVEDILOL 12.5 MG TAB PO SCH ×2 (08:20→16:39)
--- NOTE | 2019-03-14 11:39 | NUR ---
IMM EXPLAINED TO PATIENT, PATIENT SIGNED, PLACED IN CHART. COPY PLACED IN CARE TRANSITIONS FOLDER
[2019-03-14] MEDS: CEFTRIAXONE SOD 1 GM/NS 50 ML 50 ML IV SCH (11:58)
--- NOTE | 2019-03-14 13:23 | Progress Note ---
DATE: 03/14/2019 Medicine Progress Note SUBJECTIVE: The patient is doing well today with no complaints. He has been afebrile. No overnight events. PHYSICAL EXAMINATION: VITAL SIGNS: Temperature is 98.3, pulse 64 respiratory rate is 18, blood pressure was elevated 182/84, but he received his blood pressure medications this morning at 4:00 a.m. blood pressure was 145/70, pulse ox 95% on room air. GENERAL: Not in acute distress. Alert and oriented x3. Cooperative on examination. HEENT: Head; normocephalic and atraumatic. Eyes; pupils are equal, round, and reactive to light bilaterally. Extraocular movements are intact bilaterally. Throat, no evidence of erythema or exudates in the posterior pharynx. Has poor dentition. NECK: Supple. Good range of motion. PULMONARY: Clear to auscultation bilaterally. No wheezing, no rales, no rhonchi, and no crackles appreciated. CARDIOVASCULAR: Positive S1 and S2. No murmurs, rubs, or gallops appreciated. ABDOMEN: Soft, nondistended, and nontender to palpation. Bowel sounds present. MUSCULOSKELETAL: Strength is 5/5 throughout. No evidence of any muscle deficits on examination. No weakness appreciated. NEUROLOGIC: Cranial nerve 2 through 12 grossly intact. No evidence of any neurological deficits on exam. SKIN: Intact. Warm to touch. Good cap refill. PSYCHIATRIC: Normal affect and mood. EXTREMITIES: No edema. Good range of motion throughout. LABORATORY DATA: Laboratory findings show white count 6.1, hemoglobin 12, hematocrit 36, platelets of 121. Coagulations, reviewed and stable. Chemistry; sodium 136, potassium 4.1, chloride 108 bicarb 22, anion gap of 10, BUN is 14, creatinine is 0.82, glucose is 101, calcium is 8.3. MICROBIOLOGY: Shows Streptococcus species. Blood cultures, no growth today greater than 24 hours. IMAGING STUDIES: Chest x-ray, no focal pneumonia. No pulmonary edema. IMPRESSION: 1. Status post GreenLight photo vaporization of the prostate, now with urinary retention for an insertion of Romo catheter on 03/12/2019. 2. History of hyperlipidemia. 3. Hypertension. 4. Coronary artery disease. 5. Fever with underlying urinary retention with urinary tract infection. PLAN: At this time, his urine cultures are positive for Staphylococcus, pending sensitivities likely to be sensitive to penicillins, which is more likely. Blood cultures show no growth greater than 24 hours. He will need a Romo for two more weeks per Urology's note. He is afebrile, normotensive. He is currently doing very well with no other issues. If his sensitivities come back today from the urine, if blood cultures were negative greater than 48 hours, he could potentially be discharged home today, possibly early tomorrow morning. MD MIRELLA Rubin/SELINA /[id number]
[2019-03-14] MEDS ORDERED: MACROBID 100 M100 MG PO (15:32)
[2019-03-14] MEDS ORDERED: KEFLEX500 MG PO (15:53)
[2019-03-14] MEDS: HYDRALAZINE HCL 20 MG/ML VIAL IV PRN (16:14)
--- NOTE | 2019-03-14 16:47 | Progress Note ---
DATE: 03/14/2019 Discharge Progress Note LOCATION: [facility] COURSE: The patient's temperature is 98.8. He states that he feels good and wants to go home. He is eating without difficulties. Lungs are clear. His abdomen is soft. The catheter is draining avery colored urine. There is no evidence of a DVT. Hemoglobin is 12.0. The hematocrit is 36.2. The white blood cell count is 6.10. The patient's sodium is 136, BUN 14, creatinine 0.82. The patient's final blood culture and sensitivity came back no growth. Final urine culture and sensitivity came back enterococcus sensitive to penicillin and to Macrobid. My plan at this time is to discharge the patient on Macrobid 100 mg p.o. twice daily #20, and I will see him again in two weeks. He states that he does not need any pain medication. He will go home with the Romo to a leg bag. Red Prasad MD SRA/REGANL /[id number]
--- NOTE | 2019-03-14 17:18 | NUR ---
4PM BLOOD PRESSURE 201/94. PRN HYDRALAZINE AND SCHEDULED COREG GIVEN. BLOOD PRESSURE RECHECKED AND IS 189/86. SPOKE WITH DR. BURRIS ORDER FOR HYDRALAZINE 100 MG PO X1. WILL CONTINUE TO MONITOR PATIENT.
[2019-03-14] MEDS ORDERED: HYDRALAZINE HCL 25 MG TAB PO ONE (17:30)
[2019-03-14] MEDS ORDERED: HYDRALAZINE HCL 100 MG TABLET PO ONE (17:30)
[2019-03-15] VITALS: BP 132/61
[2019-03-15] MEDS: SODIUM CHLORIDE 0.9% 1000ML 1,000 ML IV SCH ×2 (02:42→12:42)
[2019-03-15 04:00] VITALS: BP 171/79
--- NOTE | 2019-03-15 07:03 | NUR ---
RECEIVED PATIENT RESTING IN BED NO S/S OF DISTRESS. BED LOW, WHEELS LOCKED, SIDE RAILS X2. CALL LIGHT IN REACH WILL CONTINUE TO MONITOR PATIENT.
[2019-03-15 07:29] VITALS: BP 188/84
[2019-03-15] MEDS: ATORVASTATIN 40 MG TAB PO SCH (07:50)
[2019-03-15] MEDS: HYDRALAZINE HCL 100 MG TABLET PO SCH (07:50)
[2019-03-15] MEDS: CARVEDILOL 12.5 MG TAB PO SCH (07:50)
[2019-03-15] MEDS: CLOPIDOGREL BISULFATE 75 MG TAB PO SCH (07:50)
[2019-03-15] MEDS: DOCUSATE SODIUM 100 MG CAP PO SCH (07:50)
[2019-03-15] MEDS: ACYCLOVIR 200 MG CAP PO SCH (07:50)
[2019-03-15] MEDS: ASPIRIN 81 MG CHEW TAB PO SCH (07:50)
[2019-03-15] MEDS: PANTOPRAZOLE SOD 40 MG TABEC PO SCH (07:50)
[2019-03-15] MEDS: LOSARTAN POTASSIUM 100 MG TAB PO SCH (07:50)
[2019-03-15 08:10] VITALS: BP 188/84
--- NOTE | 2019-03-15 08:10 | Discharge Summary ---
Discharge Progress Note CONSULTING PHYSICIAN: Carin Daniels MD FINAL DISCHARGE DIAGNOSES: Urinary retention and prostate cancer. OTHER DIAGNOSES: Include coronary artery disease, history of malignant neoplasm of the larynx, degenerative disk disease of the lumbar spine, and hyperlipidemia. OPERATIONS PERFORMED: GreenLight laser photo vaporization of the prostate. The surgeon for that was Dr. Red Prasad. HISTORY OF PRESENT ILLNESS: This patient is an 84-year-old white male, who went into urinary retention following a right inguinal hernia repair in November of 2018. The patient was given a trial of voiding, which failed. 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 After detailed discussion, the patient felt most comfortable with watchful waiting of the prostate cancer, wanted to have something done to try and get him to urinate as quickly as possible. The plan was then to proceed with a GreenLight laser photo vaporization of the prostate. For further details, please refer to the history and physical. HOSPITAL COURSE: The patient had a GreenLight photo vaporization of the prostate on March 10, 2019 and he left the operating room in good condition with the catheter to continue his bladder irrigation. The Romo catheter was removed on the 2nd postoperative day and the patient went back into urinary retention. This is not surprising in view that he had a spinal anesthetic and already had a bladder that was grossly overdistended at this time that I first met him as an outpatient in my office. The patient had a Romo catheter reinserted. He spiked a fever to 101.8. Dr. Carin Daniels switched him from Mefoxin to Rocephin. The patient defervesced rapidly. By March 14, the patient felt very good and wanted to go home. The final blood cultures and sensitivities came back no growth. The urine culture and sensitivity came back Enterococcus sensitive to Macrobid and penicillin. The patient is being discharged with Romo to leg bag and will have a return appointment to see me again in 2 weeks. He was advised he would probably not be ready to have the catheter removed for trial of voiding until he starts having bladder spasms and urinates around the catheter. Red Prasad MD TIFFANY/MODL /[id number]
--- NOTE | 2019-03-15 10:05 | NUR ---
PATIENT A/O X3, EVEN RESPIRATIONS ON RA. LUNG SOUNDS CLEAR TO AUSCULTATION. RIGHT HAND 20 GAUGE IV SL. IV INTACT AND PATENT. PATIENT AMBULATES WITH STANDBY ASSIST. RING IN PLACE WITH CLEAR YELLOW URINE. NO PAIN AT THIS TIME. AT BEDSIDE. CALL LIGHT IN REACH WILL CONTINUE TO MONITOR PATIENT.
[2019-03-15] MEDS ORDERED: HYDRALAZINE HCL 25 MG TAB PO ONE (11:00)
[2019-03-15] MEDS: CEFTRIAXONE SOD 1 GM/NS 50 ML 50 ML IV SCH (11:15)
[2019-03-15 11:40] VITALS: BP 185/81
[2019-03-15] MEDS ORDERED: NIFEDIPINE CR 30 MG TAB PO SCH (12:15)
--- NOTE | 2019-03-15 15:00 | NUR ---
REMOVED PATIENTS IV. CATHETER TIP INTACT AND PRESSURE DRESSING APPLIED.
[2019-03-15] MEDS ORDERED: COREG3.125 MG PO (15:21)
[2019-03-15] MEDS ORDERED: NIFEDIPINE ER30 M1 PO (15:22)
--- NOTE | 2019-03-15 15:47 | NUR ---
PATIENT DISCHARGED FROM FACILITY. PATIENT GATHERED ALL PERSONAL BELONGINGS, DISCHARGE INSTRUCTIONS, AND FOLLOW UP INFORMATION. LEFT UNIT IN WHEELCHAIR AND WENT HOME VIA PRIVATE AUTO. NO SIGNS OF DISTRESS WHEN LEAVING FACILITY.
[2019-03-15] MEDS ORDERED: CARVEDILOL 3.125 MG TAB PO SCH (17:00)
--- NOTE | 2019-03-15 18:28 | Discharge Summary ---
FINAL DISCHARGE DIAGNOSES: 1. Status post GreenLight laser photovaporization of the prostate. 2. History of malignant neoplasm of the larynx. 3. Hypertension. 4. Urinary retention with history of prostate cancer. 5. Coronary artery disease. 6. Fever secondary to urinary tract infection. SECURITIES COUNSELOR: Urology. PHYSICAL EXAMINATION: VITAL SIGNS: Temperature is 97.7, pulse 51, respiratory rate is 16, and blood pressure is stable. LABORATORY DATA: Labs show white count 6.18, hemoglobin 12, hematocrit is 36, and platelets of 121. Coagulation; PT 13, INR 0.99, and PTT 35. Chemistry; sodium 136, potassium 4.1, chloride 108, bicarb 22, anion gap of 10, BUN is 14, creatinine is 0.82, and calcium is 8.3. LFTs within normal range. MICROBIOLOGY: Urine culture was Enterococcus, discharged on oral antibiotics. Blood cultures were negative. IMAGING STUDIES: Chest x-ray, no focal pneumonia or pulmonary edema. HOSPITAL COURSE: This is an 84-year-old male, who came in for an elective status post GreenLight photovaporization of the prostate performed by Urology. Romo catheter was removed and the patient had urinary retention, requiring re-insertion of the Romo catheter on 03/12/2019. The patient developed fever while in the hospital, found to have a urinary tract infection with Enterococcus. He maintained on IV antibiotics while here in the hospital stay and discharged on oral antibiotics. The patient will continue with the Romo catheter on discharge for 2 more additional weeks to follow up with Urology. The patient also has uncontrolled hypertension, which medications were adjusted accordingly. On discharge, his blood pressure was much controlled and stable and prescriptions were written and placed in the chart. Blood cultures were found to be negative. On discharge, the patient was doing well back to normal baseline. On the day of discharge, vital signs were stable, labs reviewed and stable. The patient is seen and evaluated, and examined thoroughly on the day of discharge. No other complaints. The patient verbalized understanding and agreed to plan of care to follow up accordingly as an outpatient with the primary care physician in 1 week and the urologist in 2 weeks' time. MEDICATIONS: See med reconciliation form. DISPOSITION: To home. CONDITION: Stable. DIET: Heart healthy. In the event of any worsening symptoms, the patient was advised to come back to the ED for further evaluation. Discharge summary took greater than 35 minutes. MD MIRELLA Rubin/SELINA /[id number]
== END 2019-03-15 15:49 | disposition home or self-care (01) | DRG 713 ==
LOC: OR 07:27 → PACU V 12:59 → MED/SURG 13:43
PROVIDERS: ADMIT Urology; ATTEND Urology
PROC: 0V508ZZ Destruction of Prostate, Via Natural or Artificial Opening Endoscopic (ICD-10-PCS; principal; 2019-03-10 10:00)
DX: C61 Malignant neoplasm of prostate (principal); N39.0 Urinary tract infection, site not specified; Z85.46 Personal history of malignant neoplasm of prostate
CPT/HCPCS: 36415; 52648; 71046; 80048; 80053; 85025; 85610; 85730; 87040; 87086; 87186; 93005; J0360; J0696; J2250; J2270; J3010; J7030